=== PATIENT | male | born 1980 | race Caucasian/White ===

== ENCOUNTER → 2017-02-14 | Outpatient (CLI) | payer MEDICARE, MEDICAID ==
[~2017-02-14] MED LIST: ACULAR 3 ML3 M1 OP; ALLOPURINOL100 MG PO; ASPIR-LOW81 MG PO; ATIVAN1 MG PO; BACTRIM 400 MG-1 TAB PO; COLCHICINE0.6 MG PO; GOOD NEIGHBOR150 MG PO; IMITREX100 MG PO; INDOCIN25 MG PO; KEFLEX500 MG PO; MAG-OX 400400 MG PO; METOPROLOL50 MG PO; MINOXIDIL10 MG PO; OMEGA-3 FISH1200 MG PO; OMEPRAZOLE MAGN20 MG PO; OMEPRAZOLE20 M1 PO; OXAYDO5 MG PO; PHOSPHA 250 NEU1 TAB PO; PROCARDIA XL30 MG PO; TACROLIMUS1 MG PO; TOBREX OPHTH S2.5 ML OPH; VICODIN 500 MG-1 TAB PO; VITAMIN C1000 M2 PO; ZYLOPRIM100 MG PO; Zofran4 MG PO
== END | disposition home or self-care (01) ==
LOC: LAB 12:19 → US 13:30
PROVIDERS: Internal Medicine
DX: I65.23 Occlusion and stenosis of bilateral carotid arteries (principal); R59.0 Localized enlarged lymph nodes

== ENCOUNTER 2017-02-19 10:45 | Emergency (ER) | payer MEDICARE, MEDICAID ==
[~2017-02-19] VITALS: Ht 182.8 cm; Wt 136.1 kg
[~2017-02-19 10:45] MED LIST changes: -COLCRYS0.6 M1 PO; -SMZ-TMP 400 MG-1 TAB PO; -VIRT-PHOS 250250 MG PO
[2017-02-19] MEDS ORDERED: SMZ-TMP 400 MG-1 TAB PO (10:57)
[2017-02-19] MEDS ORDERED: COLCRYS0.6 M1 PO (10:58)
[2017-02-19] MEDS ORDERED: VIRT-PHOS 250250 MG PO (10:58)
[2017-02-19 11:39] LABS: BASO # 0.1 10*3/uL (0.0-0.1); BASO % 1.7 % (0.0-1.0); EOS # 0.3 10*3/uL (0.0-0.4); EOS % 4.8 % (1.0-4.0); HEMATOCRIT 42.1 % (42.0-52.0); HEMOGLOBIN 14.4 g/dl (14.0-18.0); LYMPH # 1.1 10*3/uL (1.3-4.4); MEAN CORPUSCULAR HGB 29.8 pg (27.0-31.0); MEAN CORPUSCULAR HGB CONC 34.2 g/dl (33.0-37.0); MEAN PLATELET VOLUME 11.6 fl (9.6-12.3); MONO # 0.4 10*3/uL (0.1-1.0); MONO % 6.2 % (3.0-9.0); NEUT # 4.4 10*3/uL (2.3-7.9); NEUT % 69.7 % (47.0-73.0); PLATELET COUNT AUTOMATED 177 10*3/uL (130-400); RED BLOOD COUNT 4.84 10*6/uL (4.50-5.90); RED CELL DISTRI WIDTH 13.5 % (0-14.5); WHITE BLOOD COUNT 6.3 10*3/uL (4.8-10.8)
[2017-02-19 11:55] LABS: ALKALINE PHOSPHATASE 83 U/L (45-117); BILIRUBIN, TOTAL 0.6 mg/dl (0.2-1.0); BUN 21 mg/dl (7-24); CARBON DIOXIDE 24 mmol/L (21-32); CHLORIDE 109 mmol/L (98-107); EST GLOM FILT AFRICAN AMERICAN > 60 ml/min; GLUCOSE 94 mg/dL (65-99); POTASSIUM 4.6 mmol/L (3.5-5.1); SGOT/AST 46 IU/L (3-35); SGPT/ALT 85 U/L (12-78); SODIUM 142 mmol/L (136-145); TOTAL PROTEIN 7.8 gm/dL (6.4-8.2)
== END 2017-02-19 13:59 | disposition home or self-care (01) ==
LOC: ED 10:45
PROVIDERS: Nurse Practitioner Family
DX: R59.1 Generalized enlarged lymph nodes (principal); R03.0 Elevated blood-pressure reading, without diagnosis of hypertension; G43.909 Migraine, unspecified, not intractable, without status migrainosus; Z79.82 Long term (current) use of aspirin; Z79.899 Other long term (current) drug therapy; Z94.83 Pancreas transplant status; D89.9 Disorder involving the immune mechanism, unspecified; T86.90 Unspecified complication of unspecified transplanted organ and tissue; E83.40 Disorders of magnesium metabolism, unspecified; E55.9 Vitamin D deficiency, unspecified; E34.9 Endocrine disorder, unspecified

== ENCOUNTER → 2017-02-19 | Outpatient (CLI) | payer MEDICARE, MEDICAID ==
[~2017-02-19] MED LIST changes: +COLCRYS0.6 M1 PO; +SMZ-TMP 400 MG-1 TAB PO; +VIRT-PHOS 250250 MG PO
[2017-02-19 10:37] LABS: BASO # 0.1 10*3/uL (0.0-0.1); BASO % 1.5 % (0.0-1.0); EOS # 0.3 10*3/uL (0.0-0.4); EOS % 4.8 % (1.0-4.0); HEMATOCRIT 40.5 % (42.0-52.0); HEMOGLOBIN 13.8 g/dl (14.0-18.0); IG # 0.1 10*3/uL (0.0-0.1); LYMPH % 16.7 % (27.0-41.0); MEAN CELL VOLUME 87.5 fl (80.0-94.0); MEAN CORPUSCULAR HGB 29.8 pg (27.0-31.0); MEAN CORPUSCULAR HGB CONC 34.1 g/dl (33.0-37.0); MEAN PLATELET VOLUME 11.4 fl (9.6-12.3); MONO # 0.3 10*3/uL (0.1-1.0); MONO % 5.6 % (3.0-9.0); NEUT # 4.2 10*3/uL (2.3-7.9); NEUT % 70.5 % (47.0-73.0); PLATELET COUNT AUTOMATED 171 10*3/uL (130-400); RED BLOOD COUNT 4.63 10*6/uL (4.50-5.90); RED CELL DISTRI WIDTH 13.5 % (0-14.5); WHITE BLOOD COUNT 5.9 10*3/uL (4.8-10.8)
[2017-02-19 11:00] LABS: ALBUMIN 3.7 gm/dl (3.1-4.5); ALKALINE PHOSPHATASE 84 U/L (45-117); BILIRUBIN, TOTAL 0.5 mg/dl (0.2-1.0); BUN 22 mg/dl (7-24); CARBON DIOXIDE 25 mmol/L (21-32); CHLORIDE 108 mmol/L (98-107); CHOLESTEROL 182 mg/dL (<200); EST GLOM FILT AFRICAN AMERICAN > 60 ml/min; GLUCOSE 103 mg/dL (65-99); HDL CHOLESTEROL 40 mg/dl (40-60); LDL CHOLESTEROL 112 mg/dL (9-159); MAGNESIUM 1.2 mg/dL (1.5-2.1); PHOSPHOROUS 2.3 mg/dL (2.5-4.9); POTASSIUM 4.4 mmol/L (3.5-5.1); SGOT/AST 38 IU/L (3-35); SGPT/ALT 84 U/L (12-78); SODIUM 142 mmol/L (136-145); TOTAL PROTEIN 7.5 gm/dL (6.4-8.2); TRIGLYCERIDES 150 mg/dl (<150); URIC ACID 8.3 mg/dL (3.5-7.2); VLDL CHOLESTEROL 30 mg/dL (6-40)
[2017-02-19 11:02] LABS: HEMOGLOBIN A1c 5.5 % (4.8-5.6)
[2017-02-21 11:17] LABS: VITAMIN D, 25-HYDROXY 15.9 ng/mL (30-100)
[2017-02-21 11:18] LABS: PTH INTACT 191.4 pg/mL (14.0-72.0)
== END | disposition home or self-care (01) ==
LOC: CT 02-15 14:00 → LAB 09:58 → CT 11:00
PROVIDERS: Internal Medicine Nephrology
DX: D89.9 Disorder involving the immune mechanism, unspecified (principal); E34.9 Endocrine disorder, unspecified; E83.40 Disorders of magnesium metabolism, unspecified; T86.90 Unspecified complication of unspecified transplanted organ and tissue; E55.9 Vitamin D deficiency, unspecified; Z94.83 Pancreas transplant status; Z79.899 Other long term (current) drug therapy

== ENCOUNTER → 2017-03-11 | Outpatient (CLI) | payer MEDICARE, MEDICAID ==
[~2017-03-11] MED LIST changes: +COLCRYS0.6 M1 PO; +SMZ-TMP 400 MG-1 TAB PO; +VIRT-PHOS 250250 MG PO
[2017-03-11 17:06] LABS: BASO # 0.1 10*3/uL (0.0-0.1); BASO % 1.2 % (0.0-1.0); EOS # 0.2 10*3/uL (0.0-0.4); EOS % 3.9 % (1.0-4.0); HEMATOCRIT 41.4 % (42.0-52.0); HEMOGLOBIN 14.1 g/dl (14.0-18.0); LYMPH % 19.6 % (27.0-41.0); MEAN CELL VOLUME 87.5 fl (80.0-94.0); MEAN CORPUSCULAR HGB 29.8 pg (27.0-31.0); MEAN CORPUSCULAR HGB CONC 34.1 g/dl (33.0-37.0); MONO # 0.3 10*3/uL (0.1-1.0); MONO % 5.1 % (3.0-9.0); NEUT # 3.4 10*3/uL (2.3-7.9); NEUT % 69.8 % (47.0-73.0); PLATELET COUNT AUTOMATED 161 10*3/uL (130-400); RED BLOOD COUNT 4.73 10*6/uL (4.50-5.90); RED CELL DISTRI WIDTH 13.2 % (0-14.5); WHITE BLOOD COUNT 4.9 10*3/uL (4.8-10.8)
[2017-03-11 17:23] LABS: FREE T4 1.04 ng/dl (0.76-1.46)
[2017-03-11 17:27] LABS: THYROID STIM HORMONE (HS) 0.971 uIU/ml (0.358-4.75)
[2017-03-12 07:07] LABS: FREE T3 010389 3.1 pg/mL (2.0-4.4)
== END | disposition home or self-care (01) ==
LOC: LAB 03:56 → US 03:56
PROVIDERS: Specialist
DX: J35.8 Other chronic diseases of tonsils and adenoids (principal); E04.1 Nontoxic single thyroid nodule; R59.0 Localized enlarged lymph nodes

== ENCOUNTER → 2017-03-14 | Outpatient (CLI) | payer MEDICARE, MEDICAID ==
[2017-03-14 12:49] LABS: BASO # 0.1 10*3/uL (0.0-0.1); BASO % 1.5 % (0.0-1.0); EOS # 0.2 10*3/uL (0.0-0.4); EOS % 4.3 % (1.0-4.0); HEMATOCRIT 39.1 % (42.0-52.0); HEMOGLOBIN 13.4 g/dl (14.0-18.0); LYMPH % 21.8 % (27.0-41.0); MEAN CELL VOLUME 87.1 fl (80.0-94.0); MEAN CORPUSCULAR HGB 29.8 pg (27.0-31.0); MEAN CORPUSCULAR HGB CONC 34.3 g/dl (33.0-37.0); MEAN PLATELET VOLUME 11.4 fl (9.6-12.3); MONO # 0.3 10*3/uL (0.1-1.0); MONO % 6.5 % (3.0-9.0); NEUT % 65.3 % (47.0-73.0); PLATELET COUNT AUTOMATED 162 10*3/uL (130-400); RED BLOOD COUNT 4.49 10*6/uL (4.50-5.90); RED CELL DISTRI WIDTH 13.1 % (0-14.5); WHITE BLOOD COUNT 4.6 10*3/uL (4.8-10.8)
[2017-03-14 13:43] LABS: PROTHROMBIN TIME 10.5 SECONDS (9.0-12.4)
[2017-03-14 13:58] LABS: FREE T4 1.02 ng/dl (0.76-1.46); THYROID STIM HORMONE (HS) 1.18 uIU/ml (0.358-4.75)
[2017-03-15 07:07] LABS: FREE T3 010389 3.1 pg/mL (2.0-4.4)
== END | disposition home or self-care (01) ==
LOC: LAB 12:21
PROVIDERS: Specialist
DX: E04.1 Nontoxic single thyroid nodule (principal); J35.8 Other chronic diseases of tonsils and adenoids; R59.0 Localized enlarged lymph nodes; Z79.01 Long term (current) use of anticoagulants

== ENCOUNTER → 2017-03-17 | Outpatient (CLI) | payer MEDICARE, MEDICAID | END | disposition home or self-care (01) | LOC: SDC 11:00 → EDSTATUS 11:00 | DX: E04.1 Nontoxic single thyroid nodule (principal); R59.0 Localized enlarged lymph nodes; J35.8 Other chronic diseases of tonsils and adenoids ==

== ENCOUNTER → 2017-03-24 | Outpatient (CLI) | payer MEDICARE, MEDICAID | END | disposition home or self-care (01) | LOC: CT 11:00 | DX: E04.1 Nontoxic single thyroid nodule (principal); R59.0 Localized enlarged lymph nodes ==

== ENCOUNTER → 2017-04-06 | Outpatient (CLI) | payer MEDICARE, MEDICAID ==
[2017-04-06 12:34] LABS: BASO # 0.1 10*3/uL (0.0-0.1); BASO % 1.5 % (0.0-1.0); EOS # 0.3 10*3/uL (0.0-0.4); EOS % 6.1 % (1.0-4.0); HEMATOCRIT 40.2 % (42.0-52.0); HEMOGLOBIN 13.7 g/dl (14.0-18.0); LYMPH # 0.9 10*3/uL (1.3-4.4); LYMPH % 17.4 % (27.0-41.0); MEAN CELL VOLUME 87.8 fl (80.0-94.0); MEAN CORPUSCULAR HGB 29.9 pg (27.0-31.0); MEAN CORPUSCULAR HGB CONC 34.1 g/dl (33.0-37.0); MEAN PLATELET VOLUME 11.7 fl (9.6-12.3); MONO # 0.3 10*3/uL (0.1-1.0); MONO % 6.3 % (3.0-9.0); NEUT # 3.6 10*3/uL (2.3-7.9); NEUT % 68.1 % (47.0-73.0); PLATELET COUNT AUTOMATED 152 10*3/uL (130-400); RED BLOOD COUNT 4.58 10*6/uL (4.50-5.90); RED CELL DISTRI WIDTH 13.3 % (0-14.5); WHITE BLOOD COUNT 5.3 10*3/uL (4.8-10.8)
[2017-04-06 12:51] LABS: ALBUMIN 3.8 gm/dl (3.1-4.5); ALKALINE PHOSPHATASE 83 U/L (45-117); BILIRUBIN, TOTAL 0.5 mg/dl (0.2-1.0); BUN 12 mg/dl (7-24); CARBON DIOXIDE 27 mmol/L (21-32); CHLORIDE 106 mmol/L (98-107); EST GLOM FILT AFRICAN AMERICAN > 60 ml/min; GLUCOSE 131 mg/dL (65-99); POTASSIUM 4.3 mmol/L (3.5-5.1); SGOT/AST 28 IU/L (3-35); SGPT/ALT 68 U/L (12-78); SODIUM 143 mmol/L (136-145); TOTAL PROTEIN 7.6 gm/dL (6.4-8.2)
== END | disposition home or self-care (01) ==
LOC: LAB 11:35
DX: I10 Essential (primary) hypertension (principal); E04.1 Nontoxic single thyroid nodule

== ENCOUNTER → 2017-05-10 | Day surgery (SDC) | payer MEDICARE, MEDICAID ==
[2017-05-09 13:28] VITALS: BP 138/71
[2017-05-09 14:44] LABS: BASO # 0.1 10*3/uL (0.0-0.1); EOS # 0.3 10*3/uL (0.0-0.4); HEMATOCRIT 38.6 % (42.0-52.0); HEMOGLOBIN 13.2 g/dl (14.0-18.0); LYMPH # 0.9 10*3/uL (1.3-4.4); LYMPH % 18.3 % (27.0-41.0); MEAN CELL VOLUME 87.5 fl (80.0-94.0); MEAN CORPUSCULAR HGB 29.9 pg (27.0-31.0); MEAN CORPUSCULAR HGB CONC 34.2 g/dl (33.0-37.0); MEAN PLATELET VOLUME 11.4 fl (9.6-12.3); MONO # 0.3 10*3/uL (0.1-1.0); MONO % 6.9 % (3.0-9.0); NEUT # 3.2 10*3/uL (2.3-7.9); NEUT % 67.4 % (47.0-73.0); PLATELET COUNT AUTOMATED 167 10*3/uL (130-400); RED BLOOD COUNT 4.41 10*6/uL (4.50-5.90); RED CELL DISTRI WIDTH 13.1 % (0-14.5); WHITE BLOOD COUNT 4.8 10*3/uL (4.8-10.8)
[2017-05-09 14:50] LABS: ACT PARTIAL THROMBO TIME 25.6 SECONDS (20.8-31.5)
[2017-05-10] VITALS (7 sets, daily range): BP systolic 137–184; BP diastolic 65–107
[~2017-05-10] VITALS: Ht 185.4 cm; Wt 142.9 kg
[~2017-05-10] MED LIST changes: +MAGNESIUM400 M1 PO; +NIFEDIPINE ER30 M1 PO; +OXYCODONE H5 MG/5 ML PO
--- NOTE | ~2017-05-10 | ZIPTON ---
[place], [place] TONSILLECTOMY NAME: LIVE JAMIL [facility] #: [id number] UNIT #: [id number] ROOM: DOCTOR: JAIME KENT MD BIRTHDATE: [birth year] DATE: 05/10/17 PREOPERATIVE DIAGNOSIS: Chronic tonsillitis. POSTOPERATIVE DIAGNOSIS: Same. OPERATION PERFORMED: Bilateral tonsillectomy. SURGEON: Dr. Kent. ANESTHESIA: General endotracheal. OPERATIVE PROCEDURE: Following induction of general endotracheal anesthesia, the patient was positioned supine on the OR table and draped in the standard fashion for tonsillectomy. The mouth was exposed using McIvor retractor. Bilateral tonsillectomy was performed with electrocautery. Minor bleeding was controlled with cautery. At the end of the case, all instrument and sponge counts were correct. Gastric contents were decompressed. The patient was awakened, extubated and transported to PACU in satisfactory condition. JAIME ALAMO MD CM:OPRECORD:TONSILLECTOMY 05 JAIME KENT MD 05/12/17 1006 FELY METZ.Wilmer
== END | disposition home or self-care (01) ==
LOC: SDC 05-03 10:15 → LAB 03:29 → SDC 09:30 → LAB 10:00 → SDC 13:00 → LAB 13:00
PROVIDERS: Specialist
DX: J35.01 Chronic tonsillitis (principal); I10 Essential (primary) hypertension; K21.9 Gastro-esophageal reflux disease without esophagitis; G43.909 Migraine, unspecified, not intractable, without status migrainosus; M10.9 Gout, unspecified; Z98.890 Other specified postprocedural states; Z82.49 Family history of ischemic heart disease and other diseases of the circulatory system; Z94.0 Kidney transplant status

== ENCOUNTER 2017-05-20 16:49 | Inpatient (IN) | payer MEDICARE, MEDICAID ==
[~2017-05-20] VITALS: Ht 182.8 cm; Wt 135.7 kg
--- NOTE | ~2017-05-20 | PR ---
[place], [place] PROGRESS NOTE NAME: LIVE JAMIL [facility] #: [id number] UNIT #: [id number] ROOM: 518 DOCTOR: JACKIE MONROY MD BIRTHDATE: [birth year] DOS: 05/21/2017 SUBJECTIVE: This is a patient who had been admitted to hospital yesterday with acute gastroenteritis with vomiting and diarrhea. He is feeling much better. He does not have any pain in the abdomen. There is no nausea, no vomiting, no diarrhea and he is able to tolerate his food very well. The patient has history of renal transplant in the past and on admission, he had acute on chronic renal failure and gout. He does not have any chest pain, no difficulty breathing and his troponin level is normal. CBC shows slight hypochromic anemia with hemoglobin 11.4, hematocrit 33.9. Hemoglobin A1c 6.1. Comprehensive metabolic profile showed BUN 13, creatinine 1.89, GFR 41, glucose 151, phosphorus 2 and lipid profile is fairly normal except triglyceride 197. Vitamin B12 and folic acids are normal. Vitamin D level is normal also. OBJECTIVE: VITAL SIGNS: His blood pressure is 144/76, pulse 67, respirations 18, temperature 98.5. CHEST: Clear. HEART: Regular. ABDOMEN: Soft. PLAN: We will continue with the present treatment as the patient is responding to it. JACKIE MONROY MD CM:PNTRANS [id number] JACKIE MONROY MD 05/22/17 0204 interface
--- NOTE | ~2017-05-20 | DS ---
[place], [place] DISCHARGE SUMMARY NAME: LIVE JAMIL [facility] #: [id number] UNIT #: [id number] ROOM: 518 DOCTOR: JACKIE MONROY MD BIRTHDATE: [birth year] DOS: 05/21/2017 The patient discharged from the hospital yesterday, he was seen by embossing toolsetter and according to him patient could be discharged so the patient is being discharged to home today. He is followed up by Dr. Mckeon in the office next week and he will be seen by the embossing toolsetter to which he is seeing in the [facility]. He says he goes there and he was asymptomatic. For details, please refer to my progress report in the morning yesterday and also detailed history and physical examination. Patient will continue taking his home medication. JACKIE MONROY MD CM:CONCHITA [id number] JACKIE MONROY MD 05/22/17 1052 interface
--- NOTE | ~2017-05-20 | CON ---
[place], [place] REPORT OF CONSULTATION [id number] UNIT #: [id number] ROOM: 518 DOCTOR: VICENTE THORPE MD BIRTHDATE: [birth year] DOS: 05/21/2017 REASON FOR CONSULTATION: History of kidney transplant for chronic kidney disease. HISTORY OF PRESENT ILLNESS: The patient is a pleasant 37-year-old male. He has a history of IgA nephropathy. He had been on dialysis in the past it seems. Apparently, this was diagnosed at age 14 according to some of the records. It appears he underwent renal transplant 8 years ago. He maintains on monotherapy with tacrolimus 8 mg in the morning and 7 mg in the evening. He states he was transplanted at [facility] and follows with them once a year. He reports he was supposed to have labs every 3 months, but has not had labs in "a while." It does not appear that he follows with local [facility]. He reported to me he had his tonsils taken out about a week ago or so and has not eaten much, but began to start to eat then developed sudden onset of abdominal discomfort and cramps and came to the Emergency Room. His initial labs showed a creatinine of 1.88, which appears to be near his baseline for my review of the records. This pain was apparently in the umbilical region and then it subsided. He was started on some antibiotics and fluids and reports to me he feels a lot better and hopes to go home. Currently, he denies nausea, vomiting, fevers, chills, night sweats, chest pains. Denies any diarrhea. Apparently, he initially did have some nausea, vomiting and diarrhea together. Again, this has all resolved. ALLERGIES: No known drug allergies. HOME MEDICATIONS: Included minoxidil, metoprolol, aspirin, allopurinol, tacrolimus 8 mg in the morning and 7 mg in the evening, omeprazole, ranitidine, Bactrim 3 days a week, Neutra-Phos twice a day, Mag-Ox, colchicine, nifedipine XL. PAST MEDICAL HISTORY: 1. End-stage renal disease, details as noted above. He is status post renal transplant approximately 8 years ago. 2. History of renal biopsy in the past. 3. Hypertension. 4. History of gout. 5. GERD. 6. Recent tonsillectomy. FAMILY HISTORY: No reported history of chronic kidney disease, otherwise noncontributory. SOCIAL HISTORY: No tobacco, alcohol or illicit drugs. REVIEW OF SYSTEMS: As per HPI, otherwise a 10-point review of systems was reviewed and was negative. PHYSICAL EXAMINATION: VITAL SIGNS: Temperature 97.7, pulse 70, respiratory rate 18, blood pressure 149/89. [place], [place] REPORT OF CONSULTATION NAME: LIVE JAMIL UNIT #: [id number] ROOM: 518 DOCTOR: VICENTE THORPE MD BIRTHDATE: [birth year] GENERAL: He is alert, awake, oriented x3, in no acute distress. HEENT: Shows no JVD. Sclerae are anicteric. Mucous membranes are moist. Pharynx is clear. NECK: Supple. Trachea midline. There is no neck lymphadenopathy. There is no thyromegaly. LUNGS: Clear to auscultation. No crackles, wheezing or rales. There is no tactile fremitus. He is not using accessory muscles of respiration. HEART: Normal S1, S2. No rub, thrill or gallop. ABDOMEN: Soft, nontender. I do not appreciate organomegaly, rigidity, rebound or guarding. There is no CVA tenderness. EXTREMITIES: Showed no edema. There is clubbing or cyanosis. Distal pulses are 2+. SKIN: Showed no overt rash. There are no petechiae or purpura. Skin temperature is warm. NEUROLOGIC: He is awake and alert. He is following commands. Cranial nerves are intact. LABORATORY DATA: Reviewed. BUN 13, creatinine 1.9, glucose 151, sodium 140, potassium 4.1, CO2 of 27, calcium 9.0, phosphorus 2.0, magnesium 1.6. Hemoglobin 11.4, white count of 4.8, platelets of 161. IMPRESSION: 1. History of renal transplant approximately 8 years ago with baseline creatinine that appears to be in the middle to upper 1's range with stage III chronic kidney disease. 2. Abdominal discomfort with apparently nausea and vomiting and diarrhea. This seems to have resolved. 3. Mild anemia. 4. Hypertension. 5. Recent tonsillectomy with details unclear. 6. History of gout. PLAN: 1. The patient appears to be stable from renal standpoint. His creatinine appears to be near his baseline. He is improving clinically with IV fluids. 2. His immunosuppression home medications should continue as prescribed. 3. Dose medication for current creatinine clearance. 4. From a renal standpoint, he appears stable for discharge. I did give him our contact information and he is welcome to follow up with our office here in [place] on discharge. I urged him to get lab work more frequently. Thank you for this consultation. We will follow with you. [place], [place] REPORT OF CONSULTATION NAME: LIVE JAMIL UNIT #: [id number] ROOM: 518 DOCTOR: ILA SMILEY,VICENTE Montiel BIRTHDATE: [birth year] VICENTE THORPE MD CM:CONSTR:REPORT OF CONSULTATION 1619 05/22/17 0556 interface
[~2017-05-20 16:49] MED LIST changes: -NIFEDIPINE ER30 M1 PO
[2017-05-20 16:57] VITALS: BP 141/80
[2017-05-20 17:18] LABS: BASO # 0.1 10*3/uL (0.0-0.1); BASO % 1.7 % (0.0-1.0); EOS # 0.3 10*3/uL (0.0-0.4); EOS % 4.6 % (1.0-4.0); HEMATOCRIT 38.5 % (42.0-52.0); LYMPH # 0.7 10*3/uL (1.3-4.4); LYMPH % 13.2 % (27.0-41.0); MEAN CELL VOLUME 86.3 fl (80.0-94.0); MEAN CORPUSCULAR HGB 29.1 pg (27.0-31.0); MEAN CORPUSCULAR HGB CONC 33.8 g/dl (33.0-37.0); MEAN PLATELET VOLUME 11.7 fl (9.6-12.3); MONO # 0.3 10*3/uL (0.1-1.0); MONO % 5.2 % (3.0-9.0); NEUT % 74.7 % (47.0-73.0); PLATELET COUNT AUTOMATED 200 10*3/uL (130-400); RED BLOOD COUNT 4.46 10*6/uL (4.50-5.90); RED CELL DISTRI WIDTH 12.9 % (0-14.5); WHITE BLOOD COUNT 5.4 10*3/uL (4.8-10.8)
[2017-05-20 17:35] LABS: ALBUMIN 3.6 gm/dl (3.1-4.5); BILIRUBIN, TOTAL 0.7 mg/dl (0.2-1.0); POTASSIUM 5.9 mmol/L (3.5-5.1); TOTAL PROTEIN 7.9 gm/dL (6.4-8.2)
[2017-05-20 17:54] VITALS: BP 137/80
[2017-05-20] MEDS ORDERED: NIFEDIPINE ER30 M1 PO (18:07)
[2017-05-20 18:43] LABS: ALBUMIN 3.7 gm/dl (3.1-4.5); BILIRUBIN, TOTAL 0.7 mg/dl (0.2-1.0); TOTAL PROTEIN 7.5 gm/dL (6.4-8.2)
[2017-05-20 18:44] LABS: POTASSIUM 4.2 mmol/L (3.5-5.1)
[2017-05-20 20:00] VITALS: BP 139/72
[2017-05-21] VITALS: BP 141/72
[2017-05-21 06:16] LABS: BASO # 0.1 10*3/uL (0.0-0.1); BASO % 1.1 % (0.0-1.0); EOS # 0.2 10*3/uL (0.0-0.4); EOS % 4.6 % (1.0-4.0); HEMATOCRIT 33.9 % (42.0-52.0); HEMOGLOBIN 11.4 g/dl (14.0-18.0); LYMPH # 1.1 10*3/uL (1.3-4.4); LYMPH % 23.2 % (27.0-41.0); MEAN CELL VOLUME 86.5 fl (80.0-94.0); MEAN CORPUSCULAR HGB 29.1 pg (27.0-31.0); MEAN CORPUSCULAR HGB CONC 33.6 g/dl (33.0-37.0); MEAN PLATELET VOLUME 11.3 fl (9.6-12.3); MONO # 0.3 10*3/uL (0.1-1.0); MONO % 7.2 % (3.0-9.0); NEUT % 63.7 % (47.0-73.0); PLATELET COUNT AUTOMATED 161 10*3/uL (130-400); RED BLOOD COUNT 3.92 10*6/uL (4.50-5.90); RED CELL DISTRI WIDTH 12.7 % (0-14.5); WHITE BLOOD COUNT 4.8 10*3/uL (4.8-10.8)
[2017-05-21 06:45] LABS: ALBUMIN 3.1 gm/dl (3.1-4.5); MAGNESIUM 1.6 mg/dL (1.5-2.1); POTASSIUM 4.1 mmol/L (3.5-5.1)
[2017-05-21 06:53] LABS: HEMOGLOBIN A1c 6.1 % (4.8-5.6)
[2017-05-21 06:56] LABS: BILIRUBIN, TOTAL 0.5 mg/dl (0.2-1.0); THYROID STIM HORMONE (HS) 0.129 uIU/ml (0.358-4.75); TOTAL PROTEIN 6.7 gm/dL (6.4-8.2)
[2017-05-21 08:00] VITALS: BP 144/76
[2017-05-21 09:27] LABS: FOLIC ACID 12.45 ng/mL (>5.38)
[2017-05-21 12:00] VITALS: BP 149/89
[2017-05-21 16:00] VITALS: BP 135/78
== END 2017-05-21 17:43 | disposition home or self-care (01) | DRG 683 ==
LOC: ED 16:49 → EDHOLD 17:48 → 5E 18:23
PROVIDERS: Internal Medicine; Nurse Practitioner Family
DX: N17.9 Acute kidney failure, unspecified (principal); Z94.0 Kidney transplant status; I12.9 Hypertensive chronic kidney disease with stage 1 through stage 4 chronic kidney disease, or unspecified chronic kidney disease; K52.9 Noninfective gastroenteritis and colitis, unspecified; E83.42 Hypomagnesemia; E87.5 Hyperkalemia; N18.3 Chronic kidney disease, stage 3 (moderate); K21.9 Gastro-esophageal reflux disease without esophagitis; G43.909 Migraine, unspecified, not intractable, without status migrainosus; M1A.9XX0 Chronic gout, unspecified, without tophus (tophi); R74.0 Nonspecific elevation of levels of transaminase and lactic acid dehydrogenase [LDH]; D50.9 Iron deficiency anemia, unspecified; Z82.49 Family history of ischemic heart disease and other diseases of the circulatory system; Z82.3 Family history of stroke; Z79.82 Long term (current) use of aspirin; Z79.899 Other long term (current) drug therapy

== ENCOUNTER → 2017-06-28 | Outpatient (CLI) | payer MEDICARE ==
[~2017-06-28] MED LIST changes: +NIFEDIPINE ER30 M1 PO
[2017-06-28 07:31] LABS: BASO # 0.1 10*3/uL (0.0-0.1); BASO % 1.7 % (0.0-1.0); EOS # 0.4 10*3/uL (0.0-0.4); EOS % 7.1 % (1.0-4.0); HEMATOCRIT 38.9 % (42.0-52.0); HEMOGLOBIN 13.2 g/dl (14.0-18.0); LYMPH # 1.1 10*3/uL (1.3-4.4); LYMPH % 20.4 % (27.0-41.0); MEAN CELL VOLUME 86.6 fl (80.0-94.0); MEAN CORPUSCULAR HGB 29.4 pg (27.0-31.0); MEAN CORPUSCULAR HGB CONC 33.9 g/dl (33.0-37.0); MEAN PLATELET VOLUME 11.2 fl (9.6-12.3); MONO # 0.4 10*3/uL (0.1-1.0); MONO % 6.7 % (3.0-9.0); NEUT # 3.4 10*3/uL (2.3-7.9); NEUT % 63.7 % (47.0-73.0); PLATELET COUNT AUTOMATED 166 10*3/uL (130-400); RED BLOOD COUNT 4.49 10*6/uL (4.50-5.90); RED CELL DISTRI WIDTH 13.2 % (0-14.5); WHITE BLOOD COUNT 5.4 10*3/uL (4.8-10.8)
[2017-06-28 08:05] LABS: BUN 19 mg/dl (7-24); CHLORIDE 105 mmol/L (98-107); CREATININE 1.43 mg/dL (0.70-1.30); MAGNESIUM 1.4 mg/dL (1.5-2.1); PHOSPHOROUS 2.3 mg/dL (2.5-4.9); POTASSIUM 4.3 mmol/L (3.5-5.1); SODIUM 141 mmol/L (136-145); URIC ACID 8.3 mg/dL (3.5-7.2)
== END | disposition home or self-care (01) ==
LOC: LAB 07:12
PROVIDERS: Internal Medicine Nephrology
DX: I12.9 Hypertensive chronic kidney disease with stage 1 through stage 4 chronic kidney disease, or unspecified chronic kidney disease (principal); N18.9 Chronic kidney disease, unspecified; K21.9 Gastro-esophageal reflux disease without esophagitis; Z94.0 Kidney transplant status

== ENCOUNTER → 2017-09-01 | Outpatient (CLI) | payer MEDICARE, MEDICAID ==
--- NOTE | 2017-09-01 10:33 | NUR ---
CLIENT TO TREATMENT AREA FOR PICC REMOVAL. PICC WAS REMOVED INTACT AND WITHOUT DIFFICULTY TO 37CM. MANUAL PRESSURE WAS HELD ON PICC FOR SEVERAL MINUTES AND PRESSURE DRESSING WAS APPLIED. CLIENT REMAINED IN TREATMENT AREA FOR SEVERAL MINUTES. NO BLEEDING WAS SEEN. CLIENT THEN AMBULATED FROM TREATMENT AREA IN STABLE CONDITION
== END | disposition home or self-care (01) ==
LOC: PICC 10:00
DX: Z51.11 Encounter for antineoplastic chemotherapy (principal); Z45.2 Encounter for adjustment and management of vascular access device; C83.30 Diffuse large B-cell lymphoma, unspecified site; D47.Z1 Post-transplant lymphoproliferative disorder (PTLD); D70.1 Agranulocytosis secondary to cancer chemotherapy; T86.99 Other complications of unspecified transplanted organ and tissue; R11.2 Nausea with vomiting, unspecified; T88.7XXA Unspecified adverse effect of drug or medicament, initial encounter

== ENCOUNTER 2017-09-11 16:40 | Inpatient (IN) | payer MEDICARE, MEDICAID ==
[~2017-09-11] VITALS: Ht 182.9 cm; Wt 134.9 kg
--- NOTE | ~2017-09-11 | EKG ---
[place], [place] ELECTROCARDIOGRAM REPORT NAME: LIVE JAMIL UNIT #: [id number] ROOM: [facility] DOCTOR: MAGED ALVARES MD BIRTHDATE: [birth year] DOS: 09/11/2017 TIME: 17:29:40. RATE AND RHYTHM: Normal sinus rhythm at 89 beats per minute. FL interval 149 milliseconds, QRS duration 86 milliseconds, corrected QT interval is 469 milliseconds, QRS axis is 13. IMPRESSION: 1. Normal sinus rhythm. 2. Probable left atrial enlargement. 3. Abnormal R-wave progression, late transition. 4. Borderline EKG. 5. The patient does have underlying obesity, which could be causing poor R-wave progression and to transition. A 2D echo will be ordered on the patient. MAGED ALVARES MD CM:EKGRPT:ELECTROCARDIOGRAM REPORT 1007 1052 MAGED ALVARES MD
--- NOTE | ~2017-09-11 | CON ---
[place], [place] REPORT OF CONSULTATION [id number] UN[facility] #: [id number] ROOM: [facility] DOCTOR: HEATHER ZAMORANO MD BIRTHDATE: [birth year] DOS: 09/13/2017 HISTORY OF PRESENT ILLNESS: The patient is a pleasant 37-year-old gentleman with a history of renal transplant about 8 years ago. Because of IgA nephropathy that led to transplant, status post transplant lymphoproliferative disorder. Has been on tacrolimus since then. He was noted to have high blood sugar of about 600 when he checked at home and subsequently admitted. Routine CBC examination was found to be pancytopenic and consulted for further evaluation and management. PAST MEDICAL HISTORY: Significant for IgA nephropathy status post renal transplant followed by a lymphoproliferative disorder, GERD, gout, history of migraines, mesenteric adenitis, and transaminitis. PAST SURGICAL HISTORY: Kidney transplant and tonsillectomy. SOCIAL HISTORY: No smoking, drinking, or drug abuse. FAMILY HISTORY: Father and mother, hypertension. ALLERGIES: No known allergies. MEDICATIONS: Allopurinol, aspirin, colchicine, mag oxide, metoprolol, minoxidil, nifedipine, omeprazole, ranitidine, Bactrim, and tacrolimus. REVIEW OF SYSTEMS CONSTITUTIONAL: No chills. No fatigue. No fever. No loss of appetite. No night sweats. No weakness. No weight loss. HEENT: No trouble swallowing. No loss of smell. No loss of hearing. No double vision. No pain. No discharge. ENT AND RESPIRATORY: No wheeze. No sore throat. No change in voice. No hearing loss. No nose bleed. No cough. No trouble breathing through nose. No shortness of breath. No coughing up blood. No epistaxis. CARDIOVASCULAR: No chest pain. No dizziness. No irregular heartbeat. No leg edema. No pain in legs while walking. No palpitations. No shortness of breath. DERMATOLOGIC: No acne. No hives. No laceration. No mole. No rash. ENDOCRINE: No cold intolerance. No diabetes. No fatigue. No hot flashes. No polydipsia. No polyuria. No urinating frequently. No weight loss. HEMATOLOGIC AND LYMPH: No fatigue. No easy bruising. GASTROENTEROLOGIC: No change in bowel habits. No indigestion. No frequent bloating. No vomiting blood. No abdominal cramping. No nausea. No heartburn. No vomiting. No abdominal pain. No dysphagia. No diarrhea. No constipation. No blood in stool. MALE REPRODUCTIVE: No testicular pain. No difficulty with erection. No diminished sexual drive. No penile discharge. MUSCULOSKELETAL: No back pain. No muscle pain or weakness. No neck pain. No tingling/numbness. No swelling/bruising. No osteoporosis treatment. OPHTHALMOLOGIC: No double vision. No diminished vision. No loss of vision. UROLOGIC: No dysuria. No frequent nighttime urination. No pain with [place], [place] REPORT OF CONSULTATION NAME: LIVE JAMIL UNIT #: [id number] ROOM: [facility] DOCTOR: HEATHER ZAMORANO MD BIRTHDATE: [birth year] urination. No difficulty urinating. No blood in urine. No frequent urination. No urinary incontinence. NEUROLOGIC: No loss of sensation in specific body area. No vertigo. No burning pain in feet. No trouble with balance. No trouble with coordination. No loss of consciousness. No loss of feeling/power. No confusion. No headache. No tingling/numbness. PSYCHOLOGIC: No tinnitus. No headaches. No shortness of breath. No weight decrease. No nausea. No vomiting. No abdominal discomfort. No constipation. No diarrhea. No depression. No anxiety. PHYSICAL EXAMINATION: GENERAL: He is a pleasant gentleman in no apparent distress. VITAL SIGNS: Stable, afebrile. HEENT: Oral mucosa appears intact. The external ears are normal in appearance. Nares are patent without lesions, exudates, erythema, or inflammation. Tongue is symmetrical. Uvula is midline. NECK AND THYROID: Neck supple without palpable masses. Trachea is midline. No thyromegaly. No carotid bruit or JVD. BREASTS: Normal. Nipples unremarkable. No drainage. No lumps felt on either side. HEART: Normal S1, S2, without significant murmur, rub, or gallop. LUNGS: Clear to auscultation and percussion with good air entry bilaterally. The patient is breathing easily without the use of accessory muscles. Diaphragmatic excursions are intact. ABDOMEN: No costovertebral angle tenderness. Soft. No organomegaly or masses. Nontender. No hernias present. Liver and spleen are not palpable. LYMPHATIC: No adenopathy noted in the cervical, supraclavicular, axillary, or inguinal regions. NEUROLOGIC: Nonfocal. Oriented to person, place, and time. MENTAL STATUS: Appropriate for mood and affect. PERIPHERAL PULSES: No varicosities. Femoral and pedal pulses are palpable. EXTREMITIES: Without cyanosis, clubbing, or edema. No gross anomalies. LABORATORY DATA: White count of 2.0, hemoglobin 9.7, hematocrit 28.2, platelet count 112,000. Peripheral smear shows metamyelocytes and myelocytes. BUN of 16, EGFR more than 60. Sodium 137, potassium 3.7, chloride 103, bicarbonate 26, magnesium 1.3, SGOT 53, SGPT 98. ASSESSMENT: 1. Pancytopenia secondary to possibly tacrolimus. 2. Diabetes mellitus, new onset. 3. Hypertension. PLAN: We will just keep a close watch at this time. His counts are low. I advised if it starts dropping, then we have to hold the medication or put on growth factors if he continues to be neutropenic. The patient was advised that he is going home today and was advised any bleeding, bruising, petechia any fever or chills to call his family doctor right away, otherwise close followup. Follow up blood counts as outpatient. Ample time was given to the patient to ask me questions. We will follow. [place], [place] REPORT OF CONSULTATION NAME: LIVE JAMIL UNIT #: [id number] ROOM: [facility] DOCTOR: HETAHER ZAMORANO MD BIRTHDATE: [birth year] Thanks for consulting and letting me participate in the care of this interesting patient. HEATHER ZAMORANO MD CM:CONSTR:REPORT OF CONSULTATION 1417 09/14/17 0213 interface
[2017-09-11 16:47] VITALS: BP 169/98
[2017-09-11 17:14] LABS: BILIRUBIN NEGATIVE (NEGATIVE); BLOOD TRACE-LYSED (NEGATIVE); CLARITY SL CLOUDY (CLEAR); COLOR YELLOW (YELLOW); GLUCOSE 3+ (NEGATIVE); KETONE 1+ (NEGATIVE); LEUKO ESTERASE NEGATIVE (NEGATIVE); NITRITE NEGATIVE (NEGATIVE); SPECIFIC GRAVITY <= 1.005 (1.005-1.030); UROBILINOGEN 0.2 E.U./dl (0.2-1.0)
[2017-09-11 17:18] LABS: BACTERIA 1+; EPITHELIAL CELLS 0-2; RBC 0-2 rbc/hpf (0-2)
[2017-09-11 17:30] LABS: HEMATOCRIT 32.4 % (42.0-52.0); HEMOGLOBIN 11.4 g/dl (14.0-18.0); MEAN CELL VOLUME 82.2 fl (80.0-94.0); MEAN CORPUSCULAR HGB 28.9 pg (27.0-31.0); MEAN CORPUSCULAR HGB CONC 35.2 g/dl (33.0-37.0); MEAN PLATELET VOLUME 12.2 fl (9.6-12.3); NUCLEATED RED BLOOD CELL 1.7 % (0.0-0.0); PLATELET COUNT AUTOMATED 125 10*3/uL (130-400); RED BLOOD COUNT 3.94 10*6/uL (4.50-5.90); RED CELL DISTRI WIDTH 14.1 % (0-14.5); WHITE BLOOD COUNT 2.4 10*3/uL (4.8-10.8)
[2017-09-11 17:39] LABS: ACT PARTIAL THROMBO TIME 23.9 SECONDS (20.8-31.5)
[2017-09-11 17:44] LABS: ALBUMIN 3.5 gm/dl (3.1-4.5); ALKALINE PHOSPHATASE 128 U/L (45-117); BUN 21 mg/dl (7-24); CHLORIDE 91 mmol/L (98-107); CREATININE 1.51 mg/dL (0.70-1.30); LIPASE 61 U/L (73-393); POTASSIUM 4.3 mmol/L (3.5-5.1); SGOT/AST 36 IU/L (3-35); SGPT/ALT 84 U/L (12-78); SODIUM 128 mmol/L (136-145)
[2017-09-11 17:47] VITALS: BP 159/85
[2017-09-11 17:47] LABS: TROPONIN I < 0.015 ng/ml (<0.045)
[2017-09-11 17:55] LABS: BASOPHILS 3 % (0-1); TOTAL CELLS COUNTED 100 #CELLS
[2017-09-11 17:56] LABS: POLYCHROMASIA SLIGHT; TOXIC GRANULATION SLIGHT
[2017-09-11 17:58] LABS: PLATELET SUFFICIENCY LOW (NORMAL)
[2017-09-11 19:20] VITALS: BP 133/92
--- NOTE | 2017-09-11 19:20 | NUR ---
A 37, admitted to ICCU, under the services of MAGED Alejandro MD with a diagnosis of HYPERGLYCEMIA. Chief complaint is INCREASES THIRST, URINATION, ELEVATED BLOOD SURGAR.. Patient arrived via ambulatory from ER. Monitor applied. Initial assessment completed. Vital signs taken and recorded. MAGED ALEJANDRO MD notified of admission to the unit. Orders received. See assessment for past medical history, medications and allergies. Patient and/or family oriented to unit. [facility] visitation policy reviewed. Clothing/patient valuable form completed. EVY NICOLE
--- NOTE | 2017-09-11 21:21 | NUR ---
PATIENT STATED HE IS FEELING BETTER. KARMEN IN CPAP FROM HOME.
[2017-09-12] VITALS: BP 150/87
[2017-09-12 04:00] VITALS: BP 164/88
[2017-09-12 04:55] LABS: HEMATOCRIT 28.5 % (42.0-52.0); HEMOGLOBIN 9.9 g/dl (14.0-18.0); MEAN CELL VOLUME 82.6 fl (80.0-94.0); MEAN CORPUSCULAR HGB 28.7 pg (27.0-31.0); MEAN CORPUSCULAR HGB CONC 34.7 g/dl (33.0-37.0); MEAN PLATELET VOLUME 11.4 fl (9.6-12.3); NUCLEATED RED BLOOD CELL 1.2 % (0.0-0.0); PLATELET COUNT AUTOMATED 128 10*3/uL (130-400); RED BLOOD COUNT 3.45 10*6/uL (4.50-5.90); RED CELL DISTRI WIDTH 14.4 % (0-14.5); WHITE BLOOD COUNT 2.5 10*3/uL (4.8-10.8)
[2017-09-12 05:10] LABS: BUN 18 mg/dl (7-24); CHLORIDE 101 mmol/L (98-107); CREATININE 1.31 mg/dL (0.70-1.30); POTASSIUM 3.5 mmol/L (3.5-5.1); SODIUM 137 mmol/L (136-145)
[2017-09-12 05:33] LABS: BASOPHILS 4 % (0-1); TOTAL CELLS COUNTED 100 #CELLS
[2017-09-12 05:34] LABS: PLATELET SUFFICIENCY LOW (NORMAL); POLYCHROMASIA SLIGHT
[2017-09-12 08:00] VITALS: BP 155/83
--- NOTE | 2017-09-12 08:28 | NUR ---
Awake and alert. No c/o this AM. home c-pap to off.
[2017-09-12 12:00] VITALS: BP 150/94
--- NOTE | 2017-09-12 15:38 | NUR ---
MRI ordered. pt. stated no way he is having an MRI unless he is totally sedated. Dr. Kennedy bautista.
[2017-09-12 16:00] VITALS: BP 166/93
--- NOTE | 2017-09-12 17:18 | NUR ---
dR. Arvizu IN AND SPOKE W/ PT. PRE MEDICATION ORDERED. given and currently in MRI. Family in to visit.
--- NOTE | 2017-09-12 17:40 | NUR ---
All meds scanned for this time frame were wasted. Pt. stated he took his own meds . with the exception of IVF.
[2017-09-12 20:00] VITALS: BP 147/77
[2017-09-13] VITALS: BP 147/94
[2017-09-13 04:00] VITALS: BP 154/91
--- NOTE | 2017-09-13 05:30 | NUR ---
PATIENT AWAKE C/O OF BLURRED VISION STILL PRESENT. DENIES ANY OTHER COMPLAINTS AT THIS TIME.
[2017-09-13 05:41] LABS: ACT PARTIAL THROMBO TIME 24.9 SECONDS (20.8-31.5)
[2017-09-13 05:50] LABS: HEMATOCRIT 28.2 % (42.0-52.0); HEMOGLOBIN 9.7 g/dl (14.0-18.0); MEAN CORPUSCULAR HGB 29.6 pg (27.0-31.0); MEAN CORPUSCULAR HGB CONC 34.4 g/dl (33.0-37.0); MEAN PLATELET VOLUME 11.4 fl (9.6-12.3); PLATELET COUNT AUTOMATED 112 10*3/uL (130-400); RED BLOOD COUNT 3.28 10*6/uL (4.50-5.90); RED CELL DISTRI WIDTH 14.6 % (0-14.5)
[2017-09-13 06:01] LABS: ALBUMIN 2.8 gm/dl (3.1-4.5); ALKALINE PHOSPHATASE 97 U/L (45-117); BUN 16 mg/dl (7-24); CHLORIDE 103 mmol/L (98-107); CHOLESTEROL 125 mg/dL (<200); CREATININE 1.28 mg/dL (0.70-1.30); FREE T4 1.28 ng/dl (0.76-1.46); HDL CHOLESTEROL 24 mg/dl (40-60); LDL CHOLESTEROL 23 mg/dL (9-159); PHOSPHOROUS 2.2 mg/dL (2.5-4.9); POTASSIUM 3.7 mmol/L (3.5-5.1); SGOT/AST 53 IU/L (3-35); SGPT/ALT 98 U/L (12-78); SODIUM 137 mmol/L (136-145); TOTAL PROTEIN 5.7 gm/dL (6.4-8.2); TRIGLYCERIDES 391 mg/dl (<150); VLDL CHOLESTEROL 78 mg/dL (6-40)
[2017-09-13 06:06] LABS: THYROID STIM HORMONE (HS) 0.428 uIU/ml (0.358-4.75)
[2017-09-13 06:36] LABS: BASOPHILS 1 % (0-1); PLATELET SUFFICIENCY LOW (NORMAL); POLYCHROMASIA SLIGHT; TOTAL CELLS COUNTED 100 #CELLS; TOXIC GRANULATION SLIGHT
[2017-09-13 07:13] LABS: VITAMIN D, 25-HYDROXY 8.5 ng/mL (30-100)
[2017-09-13 08:00] VITALS: BP 168/92
--- NOTE | 2017-09-13 10:00 | NUR ---
Gas Pump Attendant in to talk to patient. Patient states lives at HOME with HIS MOTHER. There are 20 steps in the home. Physician: DR ALVARES Pharmacy: [facility] Home health services: NONE Patient's level of ADLs: INDEPENDENT Patient has working utilities: YES DME: CPAP Follow-up physician's appointment after d/c: PREFERS TO MAKE HIS OWN APPT Does patient want to access PORTAL?: Discharge plan HOME. ALEKSANDRA ARGUETA
--- NOTE | 2017-09-13 11:17 | NUR ---
NOTIFIED OF CONSULT. LABS REVIEWED. NEW ORDERS FOR LABS TO BE DRAWN.
[2017-09-13 11:37] LABS: RETICULOCYTE % 5.5 % (0.50-2.50)
[2017-09-13 11:58] LABS: IRON 56 ug/dL (65-175); TOTAL IRON BINDING CAPACITY 168 ug/dl (250-450)
[2017-09-13 12:00] VITALS: BP 141/83
[2017-09-13] MEDS ORDERED: JANUVIA50 MG PO (13:45)
[2017-09-13] MEDS ORDERED: LANTUS SOL100 UNIT/1 SC (13:45)
--- NOTE | 2017-09-13 13:53 | NUR ---
Nutritional Support Services Note: Discussing with pt 1800cal diabetic diet. Dx of new onset DM. Has been having frequent thirst and urination prior to coming to hospital. He states he does his own meals, and normally eats pretty healthy. Ht.6' Wt.297# BMI 40.2. Obesity III Discussed proper portion sizes and need for weight loss and blood sugar control. All questions were answered. Encouraged follow up if needed. Diane Sosa
[2017-09-13] MEDS ORDERED: VITAMIN D-32000 UNI1 PO (14:20)
--- NOTE | 2017-09-13 14:45 | NUR ---
Discharge instructions reviewed with patient/family. Patient receptive and verbalizes understanding. Follow-up care arranged. Written instructions given to patient/family. DEBORA ALCAZAR
== END 2017-09-13 14:45 | disposition home or self-care (01) | DRG 637 ==
LOC: ED 16:40 → EDHOLD 18:42 → ICCU 18:42
PROVIDERS: Emergency Medicine; Internal Medicine; Internal Medicine Hematology & Oncology; ADMIT Internal Medicine
PROC: 5A09357 Assistance with Respiratory Ventilation, Less than 24 Consecutive Hours, Continuous Positive Airway Pressure (ICD-10-PCS; principal; 2017-09-12)
DX: E11.10 Type 2 diabetes mellitus with ketoacidosis without coma (principal); N17.0 Acute kidney failure with tubular necrosis; D61.818 Other pancytopenia; Z94.0 Kidney transplant status; E11.65 Type 2 diabetes mellitus with hyperglycemia; K21.9 Gastro-esophageal reflux disease without esophagitis; M10.9 Gout, unspecified; R20.8 Other disturbances of skin sensation; T45.1X5A Adverse effect of antineoplastic and immunosuppressive drugs, initial encounter; I11.9 Hypertensive heart disease without heart failure; R74.0 Nonspecific elevation of levels of transaminase and lactic acid dehydrogenase [LDH]; G43.909 Migraine, unspecified, not intractable, without status migrainosus; M19.90 Unspecified osteoarthritis, unspecified site; Y92.89 Other specified places as the place of occurrence of the external cause; Z82.49 Family history of ischemic heart disease and other diseases of the circulatory system; Z79.82 Long term (current) use of aspirin; Z79.899 Other long term (current) drug therapy

== ENCOUNTER 2017-09-15 00:44 | Emergency (ER) | payer MEDICARE, MEDICAID ==
[~2017-09-15] VITALS: Ht 182.8 cm; Wt 135.2 kg
[~2017-09-15 00:44] MED LIST changes: +JANUVIA50 MG PO; +LANTUS SOL100 UNIT/1 SC; +VITAMIN D-32000 UNI1 PO
[2017-09-15 01:48] LABS: HEMOGLOBIN 10.3 g/dl (14.0-18.0); MEAN CELL VOLUME 85.7 fl (80.0-94.0); MEAN CORPUSCULAR HGB 29.4 pg (27.0-31.0); MEAN CORPUSCULAR HGB CONC 34.3 g/dl (33.0-37.0); MEAN PLATELET VOLUME 10.9 fl (9.6-12.3); PLATELET COUNT AUTOMATED 127 10*3/uL (130-400); RED CELL DISTRI WIDTH 14.6 % (0-14.5)
[2017-09-15 02:02] LABS: ALBUMIN 3.2 gm/dl (3.1-4.5); ALKALINE PHOSPHATASE 97 U/L (45-117); BUN 18 mg/dl (7-24); CHLORIDE 102 mmol/L (98-107); CREATININE 1.44 mg/dL (0.70-1.30); POTASSIUM 3.8 mmol/L (3.5-5.1); SGOT/AST 34 IU/L (3-35); SGPT/ALT 93 U/L (12-78); SODIUM 138 mmol/L (136-145); TOTAL PROTEIN 6.3 gm/dL (6.4-8.2)
[2017-09-15 02:06] LABS: WHITE BLOOD COUNT 1.9 10*3/uL (4.8-10.8)
[2017-09-15 02:09] LABS: TOTAL CELLS COUNTED 100 #CELLS
[2017-09-15 02:10] LABS: PLATELET SUFFICIENCY LOW (NORMAL); POLYCHROMASIA SLIGHT
== END 2017-09-15 03:34 | disposition home or self-care (01) ==
LOC: ED 00:44
PROVIDERS: Emergency Medicine
DX: E11.10 Type 2 diabetes mellitus with ketoacidosis without coma (principal); D72.819 Decreased white blood cell count, unspecified; E11.21 Type 2 diabetes mellitus with diabetic nephropathy; I10 Essential (primary) hypertension; K21.9 Gastro-esophageal reflux disease without esophagitis; G43.909 Migraine, unspecified, not intractable, without status migrainosus; M10.9 Gout, unspecified; Z79.82 Long term (current) use of aspirin; Z79.899 Other long term (current) drug therapy

== ENCOUNTER 2017-09-28 22:18 | Inpatient (IN) | payer MEDICARE, MEDICAID ==
[~2017-09-28] VITALS: Ht 182.8 cm; Wt 133.5 kg
--- NOTE | ~2017-09-28 | CON ---
[place], [place] REPORT OF CONSULTATION NAME: LIVE JAMIL UNIT #: [id number] ROOM: [facility] DOCTOR: HEATHER ZAMORANO MD BIRTHDATE: [birth year] DOS: 09/29/2017 HISTORY OF PRESENT ILLNESS: The patient is a pleasant 37-year-old gentleman with a history of lymphoma for which he developed after being on anti-rejection medication for a kidney transplant. He was noted to have a fever of 100.4 and came to the Emergency Room and was admitted on routine CBC exam, neutropenia with neutropenic fever and consulted for further evaluation and management. He gets his chemo every 21 days and then cycle #5 has not had a PET scan since the start of the treatment. PAST MEDICAL HISTORY: IgA nephropathy for proliferative lymphoma, history of hypertension, GERD, gout, history of migraines, morbid obesity, pancytopenia, diabetes mellitus type 2. PAST SURGICAL HISTORY: Kidney transplant, tonsillectomy. SOCIAL HISTORY: No smoking, drinking, or drug abuse. FAMILY HISTORY: Her father and mother had hypertension. ALLERGIES: No allergies. MEDICATIONS: Allopurinol, aspirin, cholecalciferol, colchicine, mag oxide, metoprolol tartrate, minoxidil, nifedipine, omeprazole, phosphorus, loratadine, Januvia, sulfamethoxazole, Bactrim and tacrolimus 8 mg p.o. q.a.m. REVIEW OF SYSTEMS CONSTITUTIONAL: No chills. No fatigue. No fever. No loss of appetite. No night sweats. No weakness. No weight loss. HEENT: No trouble swallowing. No loss of smell. No loss of hearing. No double vision. No pain. No discharge. ENT AND RESPIRATORY: No wheeze. No sore throat. No change in voice. No hearing loss. No nose bleed. No cough. No trouble breathing through nose. No shortness of breath. No coughing up blood. No epistaxis. CARDIOVASCULAR: No chest pain. No dizziness. No irregular heartbeat. No leg edema. No pain in legs while walking. No palpitations. No shortness of breath. DERMATOLOGIC: No acne. No hives. No laceration. No mole. No rash. ENDOCRINE: No cold intolerance. No diabetes. No fatigue. No hot flashes. No polydipsia. No polyuria. No urinating frequently. No weight loss. HEMATOLOGIC AND LYMPH: No fatigue. No easy bruising. GASTROENTEROLOGIC: No change in bowel habits. No indigestion. No frequent bloating. No vomiting blood. No abdominal cramping. No nausea. No heartburn. No vomiting. No abdominal pain. No dysphagia. No diarrhea. No constipation. No blood in stool. MALE REPRODUCTIVE: No testicular pain. No difficulty with erection. No diminished sexual drive. No penile discharge. MUSCULOSKELETAL: No back pain. No muscle pain or weakness. No neck pain. No tingling/numbness. No swelling/bruising. No osteoporosis treatment. OPHTHALMOLOGIC: No double vision. No diminished vision. No loss of vision. [place], [place] REPORT OF CONSULTATION NAME: LIVE JAMIL UNIT #: [id number] ROOM: [facility] DOCTOR: HEATHER ZAMORANO MD BIRTHDATE: [birth year] UROLOGIC: No dysuria. No frequent nighttime urination. No pain with urination. No difficulty urinating. No blood in urine. No frequent urination. No urinary incontinence. NEUROLOGIC: No loss of sensation in specific body area. No vertigo. No burning pain in feet. No trouble with balance. No trouble with coordination. No loss of consciousness. No loss of feeling/power. No confusion. No headache. No tingling/numbness. PSYCHOLOGIC: No tinnitus. No headaches. No shortness of breath. No weight decrease. No nausea. No vomiting. No abdominal discomfort. No constipation. No diarrhea. No depression. No anxiety. PHYSICAL EXAMINATION: GENERAL: Pleasant gentleman in no apparent distress. VITAL SIGNS: Stable, afebrile. Vital signs stable and fever. Blood pressure 128/66, respirations 15, pulse 97, temperature 99.2. HEENT: Oral mucosa appears intact. The external ears are normal in appearance. Nares are patent without lesions, exudates, erythema, or inflammation. Tongue is symmetrical. Uvula is midline. NECK AND THYROID: Neck supple without palpable masses. Trachea is midline. No thyromegaly. No carotid bruit or JVD. BREASTS: Normal. Nipples unremarkable. No drainage. No lumps felt on either side. HEART: Normal S1, S2, without significant murmur, rub, or gallop. LUNGS: Clear to auscultation and percussion with good air entry bilaterally. The patient is breathing easily without the use of accessory muscles. Diaphragmatic excursions are intact. ABDOMEN: No costovertebral angle tenderness. Soft. No organomegaly or masses. Nontender. No hernias present. Liver and spleen are not palpable. LYMPHATIC: No adenopathy noted in the cervical, supraclavicular, axillary, or inguinal regions. NEUROLOGIC: Nonfocal. Oriented to person, place, and time. MENTAL STATUS: Appropriate for mood and affect. PERIPHERAL PULSES: No varicosities. Femoral and pedal pulses are palpable. EXTREMITIES: Without cyanosis, clubbing, or edema. No gross anomalies. LABORATORY DATA: Sodium 138, potassium 4.3, chloride 104, bicarbonate 27, BUN 16, creatinine 1.46. White count of 5.4, hemoglobin 7.8, hematocrit 23.5, platelet count 72,000. IMPRESSION: 1. Neutropenic fever. 2. Neutropenia secondary to chemotherapy. 3. History of lymphoma undergoing chemotherapy at [place]. 4. Cellulitis of the trunk. PLAN: The patient is on broad-spectrum antibiotics. We will start growth factors and watch his counts closely. In the meantime, continue broad-spectrum antibiotics, keep a watch on the cellulitis of the trunk. His hemoglobin and hematocrit drops, then transfusion, he will ask further records from [place] depending on the further management discussed. We will follow. [place], [place] REPORT OF CONSULTATION NAME: LIVE JAMIL UNIT #: [id number] ROOM: [facility] DOCTOR: HEATHER ZAMORANO MD BIRTHDATE: [birth year] Thanks for consulting and letting me participate in the care of this interesting patient. HEATHER ZAMORANO MD CM:CONSTR:REPORT OF CONSULTATION 0845 09/29/17 1202 interface
[2017-09-28 22:26] VITALS: BP 128/66
--- NOTE | 2017-09-28 22:38 | NUR ---
PT PROMPTED FOR URINE SPECIMEN.
[2017-09-28 23:30] LABS: BASO % 5.9 % (0.0-1.0); EOS % 11.8 % (1.0-4.0); HEMOGLOBIN 8.8 g/dl (14.0-18.0); LYMPH # 0.2 10*3/uL (1.3-4.4); LYMPH % 55.9 % (27.0-41.0); MEAN CELL VOLUME 86.7 fl (80.0-94.0); MEAN CORPUSCULAR HGB 29.3 pg (27.0-31.0); MEAN CORPUSCULAR HGB CONC 33.8 g/dl (33.0-37.0); MEAN PLATELET VOLUME 12.4 fl (9.6-12.3); MONO # 0.1 10*3/uL (0.1-1.0); MONO % 14.7 % (3.0-9.0); NEUT % 11.7 % (47.0-73.0); PLATELET COUNT AUTOMATED 70 10*3/uL (130-400); RED CELL DISTRI WIDTH 13.9 % (0-14.5)
[2017-09-28 23:45] LABS: ALBUMIN 3.5 gm/dl (3.1-4.5); ALKALINE PHOSPHATASE 79 U/L (45-117); BUN 16 mg/dl (7-24); CHLORIDE 104 mmol/L (98-107); CREATININE 1.46 mg/dL (0.70-1.30); POTASSIUM 4.3 mmol/L (3.5-5.1); SGOT/AST 33 IU/L (3-35); SGPT/ALT 78 U/L (12-78); SODIUM 138 mmol/L (136-145); TOTAL PROTEIN 6.5 gm/dL (6.4-8.2)
[2017-09-28 23:47] LABS: BILIRUBIN 1+ (NEGATIVE); BLOOD TRACE-INTACT (NEGATIVE); CLARITY CLEAR (CLEAR); COLOR YELLOW (YELLOW); GLUCOSE NEGATIVE (NEGATIVE); KETONE NEGATIVE (NEGATIVE); LEUKO ESTERASE NEGATIVE (NEGATIVE); NITRITE NEGATIVE (NEGATIVE); UROBILINOGEN 0.2 E.U./dl (0.2-1.0)
[2017-09-29 00:07] LABS: BASOPHILS 15 % (0-1); MICROCYTOSIS SLIGHT; PLATELET SUFFICIENCY LOW (NORMAL); TOTAL CELLS COUNTED 100 #CELLS
[2017-09-29 00:08] LABS: OVALOCYTES FEW
[2017-09-29 00:10] LABS: WHITE BLOOD COUNT 0.3 10*3/uL (4.8-10.8)
--- NOTE | 2017-09-29 00:10 | NUR ---
DR. JIN NOTIFIED OF CRITICAL LOW WBC OF 0.3
[2017-09-29 00:40] VITALS: BP 144/72
--- NOTE | 2017-09-29 01:09 | NUR ---
THIS RN CALLED TO GIVE REPORT.NURSE TO RETURN CALL.
[2017-09-29 01:45] VITALS: BP 140/81
--- NOTE | 2017-09-29 01:45 | NUR ---
A 37 YEAR OLD MALE admitted to ICCU, under the services of MAGED Alejandro MD with a diagnosis of NEUTROPENIC FEVER. Chief complaint is TEMP OF 100.6 AT HOME. Patient arrived via stretcher from ER. Monitor applied. Initial assessment completed. Vital signs taken and recorded. MAGED ALEJANDRO MD notified of admission to the unit. Orders received. See assessment for past medical history, medications and allergies. Patient and/or family oriented to unit. [facility]U visitation policy reviewed. Clothing/patient valuable form completed. CANDE AMAYA
[2017-09-29] MEDS ORDERED: LANTUS SOL100 UNIT/1 SQ (02:22)
--- NOTE | 2017-09-29 03:06 | NUR ---
MEDS GONE OVER WITH PT, WHO IS ALERT AND ORIENTED. MED REC UPDATED.
--- NOTE | 2017-09-29 03:14 | NUR ---
0300 TYLENOL 2 PO FOR C/O'S GENERALIZED ACHING FROM TEMP. WILL MONITOR. RESTING IN BED WITH EYES CLOSED.
--- NOTE | 2017-09-29 03:16 | NUR ---
FLUID BOLUS INFUSING PER ORDER. MONITOR NSR. NEUTROPENIC PRECAUTIONS MAINTAINED. PROPER SIGN ON DOOR.
--- NOTE | 2017-09-29 03:21 | NUR ---
PIMPLE-LIKE AREA NOTED RLQ OF ABD. RED IN APPEARANCE. NO DRNG NOTED.
--- NOTE | 2017-09-29 03:54 | NUR ---
EARLIER TYLENOL EFFECTIVE.
[2017-09-29 04:00] VITALS: BP 128/62
--- NOTE | 2017-09-29 04:21 | NUR ---
ORAL TEMP 100.6. RESTING IN BED WITH EYES CLOSED. IV FLUIDS INFUSING WELL AT 125C/HR. URINAL AT BEDSIDE. VOIDS QS.
[2017-09-29 05:50] LABS: ALBUMIN 3.1 gm/dl (3.1-4.5); ALKALINE PHOSPHATASE 67 U/L (45-117); BUN 13 mg/dl (7-24); CHLORIDE 108 mmol/L (98-107); CREATININE 1.31 mg/dL (0.70-1.30); PHOSPHOROUS 2.2 mg/dL (2.5-4.9); POTASSIUM 3.8 mmol/L (3.5-5.1); SGOT/AST 25 IU/L (3-35); SGPT/ALT 62 U/L (12-78); SODIUM 140 mmol/L (136-145); TOTAL PROTEIN 5.8 gm/dL (6.4-8.2)
--- NOTE | 2017-09-29 06:10 | NUR ---
NO DISTRESS NOTED. IV FLUIDS CONT. ISOLATION CONT. CONDITION GUARDED.
[2017-09-29 06:14] LABS: ACT PARTIAL THROMBO TIME 30.3 SECONDS (20.8-31.5); INTERNATIONAL NORM RATIO 1.1 (2.0-3.5)
[2017-09-29 06:26] LABS: HEMATOCRIT 23.5 % (42.0-52.0); HEMOGLOBIN 7.8 g/dl (14.0-18.0); MEAN CELL VOLUME 87.4 fl (80.0-94.0); MEAN CORPUSCULAR HGB CONC 33.2 g/dl (33.0-37.0); MEAN PLATELET VOLUME 12.4 fl (9.6-12.3); PLATELET COUNT AUTOMATED 72 10*3/uL (130-400); RED BLOOD COUNT 2.69 10*6/uL (4.50-5.90); RED CELL DISTRI WIDTH 14.1 % (0-14.5)
--- NOTE | 2017-09-29 06:42 | NUR ---
ANSWERING SERVICE NOTIFIED OF DR.JOHN OHARA
[2017-09-29 06:53] LABS: BASOPHILS 4 % (0-1); TOTAL CELLS COUNTED 50 #CELLS
[2017-09-29 06:54] LABS: PLATELET SUFFICIENCY LOW (NORMAL); POLYCHROMASIA SLIGHT
[2017-09-29 06:55] LABS: WHITE BLOOD COUNT 0.4 10*3/uL (4.8-10.8)
[2017-09-29 08:00] VITALS: BP 97/59
--- NOTE | 2017-09-29 08:10 | NUR ---
PT MEDICATED WITH TYLENOL AT HIS REQUEST FOR C/O BODY ACHES.
--- NOTE | 2017-09-29 08:46 | NUR ---
DR ZAMORANO IN TO SEE PT.
--- NOTE | 2017-09-29 09:24 | NUR ---
DR ALVARES IN TO SEE PT.
--- NOTE | 2017-09-29 10:02 | NUR ---
RONALDO AT DR CASTREJON'S ANSWERING SERVICE MADE AWARE OF NEW CONSULT ORDER.
--- NOTE | 2017-09-29 11:58 | NUR ---
DR CASTREJON IN TO SEE PT.
--- NOTE | 2017-09-29 12:37 | NUR ---
PT TO BE TRANSFERED TO [facility]. GERARDO FROM MED CALL REQUESTED DEMOGRAPHICS SENT TO THEM.
[2017-09-29 14:00] VITALS: BP 127/64
--- NOTE | 2017-09-29 14:33 | NUR ---
REPORT GIVEN TO JANIA AT [facility].
--- NOTE | 2017-09-29 15:47 | NUR ---
[facility] HERE TO TRANSPORT PT TO [facility]. FAMILY WITH PT AT TIME OF DISCHARGE.
== END 2017-09-29 15:47 | disposition short-term general hospital (02) | DRG 872 ==
LOC: ED 22:18 → ICCU 09-29 00:43 → EDHOLD 09-29 00:43 → ICCU 09-29 01:00
PROVIDERS: Family Medicine; Student in an Organized Health Care Education/Training Program; ADMIT Internal Medicine
PROC: 5A09357 Assistance with Respiratory Ventilation, Less than 24 Consecutive Hours, Continuous Positive Airway Pressure (ICD-10-PCS; principal; 2017-09-29)
DX: A41.9 Sepsis, unspecified organism (principal); D61.818 Other pancytopenia; E11.22 Type 2 diabetes mellitus with diabetic chronic kidney disease; C85.90 Non-Hodgkin lymphoma, unspecified, unspecified site; N18.3 Chronic kidney disease, stage 3 (moderate); L03.311 Cellulitis of abdominal wall; Z68.41 Body mass index [BMI] 40.0-44.9, adult; Z94.0 Kidney transplant status; E11.65 Type 2 diabetes mellitus with hyperglycemia; T45.1X5A Adverse effect of antineoplastic and immunosuppressive drugs, initial encounter; E66.01 Morbid (severe) obesity due to excess calories; E83.39 Other disorders of phosphorus metabolism; K21.9 Gastro-esophageal reflux disease without esophagitis; E83.42 Hypomagnesemia; R50.81 Fever presenting with conditions classified elsewhere; D64.9 Anemia, unspecified; M1A.9XX0 Chronic gout, unspecified, without tophus (tophi); I12.9 Hypertensive chronic kidney disease with stage 1 through stage 4 chronic kidney disease, or unspecified chronic kidney disease; Z86.69 Personal history of other diseases of the nervous system and sense organs; Z79.4 Long term (current) use of insulin; Z82.49 Family history of ischemic heart disease and other diseases of the circulatory system; Y92.89 Other specified places as the place of occurrence of the external cause; Z79.899 Other long term (current) drug therapy

== ENCOUNTER → 2017-12-13 | Outpatient (CLI) | payer MEDICARE ==
[~2017-12-13] MED LIST changes: +LANTUS SOL100 UNIT/1 SQ
[2017-12-13 09:42] LABS: HEMATOCRIT 33.4 % (42.0-52.0); HEMOGLOBIN 11.4 g/dl (14.0-18.0); MEAN CELL VOLUME 87.4 fl (80.0-94.0); MEAN CORPUSCULAR HGB 29.8 pg (27.0-31.0); MEAN CORPUSCULAR HGB CONC 34.1 g/dl (33.0-37.0); MEAN PLATELET VOLUME 11.2 fl (9.6-12.3); PLATELET COUNT AUTOMATED 180 10*3/uL (130-400); RED BLOOD COUNT 3.82 10*6/uL (4.50-5.90); RED CELL DISTRI WIDTH 14.4 % (0-14.5); WHITE BLOOD COUNT 3.8 10*3/uL (4.8-10.8)
[2017-12-13 09:53] LABS: CREATININE 1.89 mg/dL (0.70-1.30); PHOSPHOROUS 2.7 mg/dL (2.5-4.9); POTASSIUM 4.2 mmol/L (3.5-5.1); URIC ACID 9.3 mg/dL (3.5-7.2)
[2017-12-13 10:25] LABS: BASOPHILS 1 % (0-1); OVALOCYTES FEW; PLATELET SUFFICIENCY NORMAL (NORMAL); POLYCHROMASIA SLIGHT; TOTAL CELLS COUNTED 100 #CELLS
== END | disposition home or self-care (01) ==
LOC: LAB 09:00
PROVIDERS: Internal Medicine Nephrology
DX: Z48.22 Encounter for aftercare following kidney transplant (principal); Z94.0 Kidney transplant status

== ENCOUNTER → 2017-12-29 | Day surgery (SDC) | payer MEDICARE ==
[~2017-12-29] VITALS: Ht 182.8 cm; Wt 135.2 kg
[~2017-12-29] MED LIST changes: +PERCOCET 5-3251 EACH PO
--- NOTE | ~2017-12-29 | PROC NOTE ---
[place], [place] PROCEDURE NOTE NAME: [facility] #: [id number] UNIT #: [id number] ROOM: DOCTOR: JULIO CÉSAR ALVARENGA MD BIRTHDATE: [birth year] DOS: 12/29/2017 PREOPERATIVE DIAGNOSIS: Right thigh MediPort. POSTOPERATIVE DIAGNOSIS: Right thigh MediPort. PROCEDURE: Removal of right thigh MediPort. SURGEON: Julio César Alvarenga MD MEMORIAL COUNSELOR: LIVAN. ANESTHESIA: MAC with local. INDICATIONS: This is a 37-year-old gentleman who had history of right thigh MediPort placed for chemotherapy, who is here for the removal of this MediPort. The procedure and its complications were explained to the patient in detail preoperatively. Complications that were discussed included but were not limited to bleeding, infection, hematoma/seroma/abscess formation and prolonged pain. He agreed to proceed. DESCRIPTION OF PROCEDURE: After identifying the patient, the patient was brought to the operating suite and laid in the supine position. After IV sedation was administered, a timeout procedure was called and the parts were then painted and draped in the usual sterile fashion. Incision was marked and 1% plain lidocaine was injected in the marked site. The skin incision was made and deepened in layers until to the MediPort was identified. It was dissected away from the sheath and the suture was cut. The port was then removed in its entirety and sent for histopathological diagnosis. Hemostasis was achieved with the help of electrocautery and pressure. After hemostasis was confirmed, the subcutaneous tissue and the sheath were approximated in a single layer with the help of 3-0 Vicryl. The skin edges were then approximated with the help of 4-0 Vicryl in a subcuticular fashion. A dressing was placed. The patient tolerated procedure well and was taken to the recovery room in stable fashion. There were no complications. Dr. Julio César Alvarenga, the attending surgeon, was present throughout the operating case. Julio César Alvarenga MD CM:PROCNOTE:PROCEDURE NOTE [id number] JULIO CÉSAR ALVARENGA MD
[2017-12-29 09:45] VITALS: BP 105/62
[2017-12-29 11:10] VITALS: BP 128/74
[2017-12-29 11:25] VITALS: BP 128/69
[2017-12-29 11:34] VITALS: BP 122/77
== END | disposition home or self-care (01) ==
LOC: SDC 12-28 08:00
DX: Z45.2 Encounter for adjustment and management of vascular access device (principal); T86.10 Unspecified complication of kidney transplant; D47.Z1 Post-transplant lymphoproliferative disorder (PTLD); K21.9 Gastro-esophageal reflux disease without esophagitis; G47.30 Sleep apnea, unspecified; I12.0 Hypertensive chronic kidney disease with stage 5 chronic kidney disease or end stage renal disease; N18.6 End stage renal disease; Z99.2 Dependence on renal dialysis; Z79.899 Other long term (current) drug therapy; Z79.4 Long term (current) use of insulin; C85.90 Non-Hodgkin lymphoma, unspecified, unspecified site; D64.9 Anemia, unspecified; E11.22 Type 2 diabetes mellitus with diabetic chronic kidney disease

== ENCOUNTER 2018-02-13 18:24 | Emergency (ER) | payer MEDICARE ==
[~2018-02-13] VITALS: Wt 136.1 kg
[2018-02-13 19:05] LABS: HEMATOCRIT 31.9 % (42.0-52.0); HEMOGLOBIN 10.8 g/dl (14.0-18.0); MEAN CELL VOLUME 84.6 fl (80.0-94.0); MEAN CORPUSCULAR HGB 28.6 pg (27.0-31.0); MEAN CORPUSCULAR HGB CONC 33.9 g/dl (33.0-37.0); MEAN PLATELET VOLUME 10.3 fl (9.6-12.3); PLATELET COUNT AUTOMATED 166 10*3/uL (130-400); RED BLOOD COUNT 3.77 10*6/uL (4.50-5.90); RED CELL DISTRI WIDTH 12.6 % (0-14.5)
[2018-02-13 19:08] LABS: WHITE BLOOD COUNT 0.6 10*3/uL (4.8-10.8)
[2018-02-13 19:19] LABS: ALBUMIN 4.1 gm/dl (3.1-4.5); CREATININE 2.54 mg/dL (0.70-1.30); POTASSIUM 3.9 mmol/L (3.5-5.1); TOTAL PROTEIN 7.2 gm/dL (6.4-8.2)
[2018-02-13 19:28] LABS: TOTAL CELLS COUNTED 100 #CELLS
[2018-02-13 19:29] LABS: BURR CELLS FEW; PLATELET SUFFICIENCY NORMAL (NORMAL)
== END 2018-02-13 20:08 | disposition left against medical advice (07) ==
LOC: ED 18:24
PROVIDERS: Nurse Practitioner Family
DX: K04.7 Periapical abscess without sinus (principal); D70.9 Neutropenia, unspecified; H92.02 Otalgia, left ear; R42 Dizziness and giddiness; Z79.899 Other long term (current) drug therapy

== ENCOUNTER → 2018-02-27 | Outpatient (CLI) | payer MEDICARE ==
[2018-02-27 09:39] LABS: HEMATOCRIT 31.8 % (42.0-52.0); HEMOGLOBIN 10.5 g/dl (14.0-18.0); MEAN CELL VOLUME 85.3 fl (80.0-94.0); MEAN CORPUSCULAR HGB 28.2 pg (27.0-31.0); MEAN PLATELET VOLUME 12.9 fl (9.6-12.3); PLATELET COUNT AUTOMATED 72 10*3/uL (130-400); RED BLOOD COUNT 3.73 10*6/uL (4.50-5.90); RED CELL DISTRI WIDTH 12.8 % (0-14.5)
[2018-02-27 10:05] LABS: CREATININE 1.61 mg/dL (0.70-1.30); PHOSPHOROUS 2.4 mg/dL (2.5-4.9); POTASSIUM 4.7 mmol/L (3.5-5.1)
[2018-02-27 10:39] LABS: OVALOCYTES FEW; PLATELET SUFFICIENCY LOW (NORMAL); POLYCHROMASIA SLIGHT; TOTAL CELLS COUNTED 100 #CELLS
[2018-02-27 10:43] LABS: WHITE BLOOD COUNT 1.3 10*3/uL (4.8-10.8)
== END | disposition home or self-care (01) ==
LOC: LAB 09:15
PROVIDERS: Internal Medicine Nephrology
DX: Z48.22 Encounter for aftercare following kidney transplant (principal); Z94.0 Kidney transplant status

== ENCOUNTER → 2018-03-06 | Outpatient (CLI) | payer MEDICARE ==
[2018-03-06 12:17] LABS: HEMATOCRIT 31.3 % (42.0-52.0); HEMOGLOBIN 10.2 g/dl (14.0-18.0); MEAN CELL VOLUME 87.9 fl (80.0-94.0); MEAN CORPUSCULAR HGB 28.7 pg (27.0-31.0); MEAN CORPUSCULAR HGB CONC 32.6 g/dl (33.0-37.0); MEAN PLATELET VOLUME 11.8 fl (9.6-12.3); PLATELET COUNT AUTOMATED 123 10*3/uL (130-400); RED BLOOD COUNT 3.56 10*6/uL (4.50-5.90); RED CELL DISTRI WIDTH 14.6 % (0-14.5)
[2018-03-06 12:38] LABS: BUN 18 mg/dl (7-24); CHLORIDE 108 mmol/L (98-107); CREATININE 1.49 mg/dL (0.70-1.30); PHOSPHOROUS 2.2 mg/dL (2.5-4.9); POTASSIUM 4.2 mmol/L (3.5-5.1); SODIUM 140 mmol/L (136-145); URIC ACID 8.1 mg/dL (3.5-7.2)
[2018-03-06 12:46] LABS: BASOPHILS 6 % (0-1); TOTAL CELLS COUNTED 50 #CELLS
[2018-03-06 12:47] LABS: OVALOCYTES MODERATE; PLATELET SUFFICIENCY LOW (NORMAL)
[2018-03-06 12:58] LABS: WHITE BLOOD COUNT 0.5 10*3/uL (4.8-10.8)
== END | disposition home or self-care (01) ==
LOC: LAB 11:28
PROVIDERS: Internal Medicine Nephrology
DX: Z48.22 Encounter for aftercare following kidney transplant (principal); Z94.0 Kidney transplant status

== ENCOUNTER → 2018-03-28 | Outpatient (CLI) | payer MEDICARE ==
[~2018-03-28] MED LIST changes: +NORVASC10 MG PO
[2018-03-28 11:28] LABS: HEMATOCRIT 32.4 % (42.0-52.0); HEMOGLOBIN 10.7 g/dl (14.0-18.0); MEAN CELL VOLUME 84.8 fl (80.0-94.0); MEAN PLATELET VOLUME 12.8 fl (9.6-12.3); PLATELET COUNT AUTOMATED 95 10*3/uL (130-400); RED BLOOD COUNT 3.82 10*6/uL (4.50-5.90); RED CELL DISTRI WIDTH 14.8 % (0-14.5)
[2018-03-28 11:33] LABS: BUN 13 mg/dl (7-24); CHLORIDE 109 mmol/L (98-107); CREATININE 1.32 mg/dL (0.70-1.30); PHOSPHOROUS 2.4 mg/dL (2.5-4.9); POTASSIUM 4.6 mmol/L (3.5-5.1); SODIUM 145 mmol/L (136-145); URIC ACID 9.6 mg/dL (3.5-7.2)
[2018-03-28 12:18] LABS: BASOPHILS 1 % (0-1); PLATELET SUFFICIENCY LOW (NORMAL); TOTAL CELLS COUNTED 100 #CELLS
[2018-03-28 12:32] LABS: WHITE BLOOD COUNT 1.6 10*3/uL (4.8-10.8)
== END | disposition home or self-care (01) ==
LOC: LAB 10:41
PROVIDERS: Internal Medicine Nephrology
DX: D70.9 Neutropenia, unspecified (principal); Z94.0 Kidney transplant status

== ENCOUNTER → 2018-04-10 | Outpatient (CLI) | payer MEDICARE ==
[2018-04-10 09:42] LABS: HEMATOCRIT 35.9 % (42.0-52.0); HEMOGLOBIN 11.6 g/dl (14.0-18.0); MEAN CELL VOLUME 84.5 fl (80.0-94.0); MEAN CORPUSCULAR HGB 27.3 pg (27.0-31.0); MEAN CORPUSCULAR HGB CONC 32.3 g/dl (33.0-37.0); MEAN PLATELET VOLUME 11.1 fl (9.6-12.3); PLATELET COUNT AUTOMATED 206 10*3/uL (130-400); RED BLOOD COUNT 4.25 10*6/uL (4.50-5.90); RED CELL DISTRI WIDTH 15.6 % (0-14.5)
[2018-04-10 10:06] LABS: BASOPHILS 3 % (0-1); BURR CELLS MODERATE; OVALOCYTES MODERATE; PLATELET SUFFICIENCY NORMAL (NORMAL); POLYCHROMASIA SLIGHT; TOTAL CELLS COUNTED 72 #CELLS
[2018-04-10 10:11] LABS: WHITE BLOOD COUNT 0.7 10*3/uL (4.8-10.8)
== END | disposition home or self-care (01) ==
LOC: LAB 08:55
PROVIDERS: Internal Medicine Hematology & Oncology
DX: Z51.11 Encounter for antineoplastic chemotherapy (principal); Z45.2 Encounter for adjustment and management of vascular access device; I10 Essential (primary) hypertension; T86.99 Other complications of unspecified transplanted organ and tissue; K21.9 Gastro-esophageal reflux disease without esophagitis; G47.30 Sleep apnea, unspecified; E86.0 Dehydration; D70.1 Agranulocytosis secondary to cancer chemotherapy; R11.2 Nausea with vomiting, unspecified; C83.31 Diffuse large B-cell lymphoma, lymph nodes of head, face, and neck; D70.9 Neutropenia, unspecified

== ENCOUNTER → 2018-04-24 | Outpatient (CLI) | payer MEDICARE ==
[2018-04-24 10:20] LABS: BASO # 0.1 10*3/uL (0.0-0.1); BASO % 3.3 % (0.0-1.0); EOS # 0.1 10*3/uL (0.0-0.4); EOS % 3.8 % (1.0-4.0); HEMATOCRIT 36.3 % (42.0-52.0); HEMOGLOBIN 11.9 g/dl (14.0-18.0); LYMPH # 0.4 10*3/uL (1.3-4.4); LYMPH % 16.5 % (27.0-41.0); MEAN CELL VOLUME 82.9 fl (80.0-94.0); MEAN CORPUSCULAR HGB 27.2 pg (27.0-31.0); MEAN CORPUSCULAR HGB CONC 32.8 g/dl (33.0-37.0); MEAN PLATELET VOLUME 10.4 fl (9.6-12.3); MONO # 0.2 10*3/uL (0.1-1.0); NEUT # 1.5 10*3/uL (2.3-7.9); NEUT % 68.4 % (47.0-73.0); PLATELET COUNT AUTOMATED 130 10*3/uL (130-400); RED BLOOD COUNT 4.38 10*6/uL (4.50-5.90); WHITE BLOOD COUNT 2.1 10*3/uL (4.8-10.8)
[2018-04-24 10:34] LABS: ALBUMIN 3.8 gm/dl (3.1-4.5); ALKALINE PHOSPHATASE 102 U/L (45-117); BUN 16 mg/dl (7-24); CHLORIDE 106 mmol/L (98-107); CREATININE 1.46 mg/dL (0.70-1.30); POTASSIUM 4.4 mmol/L (3.5-5.1); SGOT/AST 26 IU/L (3-35); SGPT/ALT 61 U/L (12-78); SODIUM 142 mmol/L (136-145); TOTAL PROTEIN 6.9 gm/dL (6.4-8.2); URIC ACID 7.1 mg/dL (3.5-7.2)
== END | disposition home or self-care (01) ==
LOC: LAB 10:00 → INJECTION 10:00
PROVIDERS: Internal Medicine Hematology & Oncology
DX: Z51.11 Encounter for antineoplastic chemotherapy (principal); I10 Essential (primary) hypertension; K21.9 Gastro-esophageal reflux disease without esophagitis; C83.31 Diffuse large B-cell lymphoma, lymph nodes of head, face, and neck; D70.1 Agranulocytosis secondary to cancer chemotherapy; D47.Z1 Post-transplant lymphoproliferative disorder (PTLD); D70.9 Neutropenia, unspecified; G47.30 Sleep apnea, unspecified; E86.0 Dehydration; R11.2 Nausea with vomiting, unspecified; T86.99 Other complications of unspecified transplanted organ and tissue; Z94.0 Kidney transplant status

== ENCOUNTER → 2018-05-01 | Outpatient (CLI) | payer MEDICARE ==
[2018-05-01 11:39] LABS: HEMATOCRIT 37.9 % (42.0-52.0); HEMOGLOBIN 12.3 g/dl (14.0-18.0); MEAN CORPUSCULAR HGB 27.3 pg (27.0-31.0); MEAN CORPUSCULAR HGB CONC 32.5 g/dl (33.0-37.0); MEAN PLATELET VOLUME 11.1 fl (9.6-12.3); PLATELET COUNT AUTOMATED 148 10*3/uL (130-400); RED BLOOD COUNT 4.51 10*6/uL (4.50-5.90); RED CELL DISTRI WIDTH 16.7 % (0-14.5)
[2018-05-01 12:04] LABS: BASOPHILS 8 % (0-1); TOTAL CELLS COUNTED 75 #CELLS
[2018-05-01 12:05] LABS: BUN 19 mg/dl (7-24); CHLORIDE 109 mmol/L (98-107); POTASSIUM 4.4 mmol/L (3.5-5.1); SODIUM 144 mmol/L (136-145); URIC ACID 8.2 mg/dL (3.5-7.2)
[2018-05-01 12:06] LABS: CREATININE 1.52 mg/dL (0.70-1.30); PHOSPHOROUS 3.3 mg/dL (2.5-4.9); PLATELET SUFFICIENCY NORMAL (NORMAL)
[2018-05-01 12:07] LABS: WHITE BLOOD COUNT 0.6 10*3/uL (4.8-10.8)
== END | disposition home or self-care (01) ==
LOC: LAB 11:12
PROVIDERS: Internal Medicine Nephrology
DX: Z48.22 Encounter for aftercare following kidney transplant (principal); Z94.0 Kidney transplant status

== ENCOUNTER → 2018-05-08 | Outpatient (CLI) | payer MEDICARE ==
[2018-05-08 10:42] LABS: HEMATOCRIT 38.1 % (42.0-52.0); HEMOGLOBIN 12.5 g/dl (14.0-18.0); MEAN CELL VOLUME 80.9 fl (80.0-94.0); MEAN CORPUSCULAR HGB 26.5 pg (27.0-31.0); MEAN CORPUSCULAR HGB CONC 32.8 g/dl (33.0-37.0); MEAN PLATELET VOLUME 9.8 fl (9.6-12.3); PLATELET COUNT AUTOMATED 165 10*3/uL (130-400); RED BLOOD COUNT 4.71 10*6/uL (4.50-5.90); RED CELL DISTRI WIDTH 15.8 % (0-14.5)
[2018-05-08 11:08] LABS: BASOPHILS 8 % (0-1); TOTAL CELLS COUNTED 52 #CELLS
[2018-05-08 11:09] LABS: OVALOCYTES MODERATE; PLATELET SUFFICIENCY NORMAL (NORMAL)
== END | disposition home or self-care (01) ==
LOC: LAB 10:10
PROVIDERS: Internal Medicine Hematology & Oncology
DX: T86.99 Other complications of unspecified transplanted organ and tissue (principal); D47.Z1 Post-transplant lymphoproliferative disorder (PTLD); D70.1 Agranulocytosis secondary to cancer chemotherapy; C83.31 Diffuse large B-cell lymphoma, lymph nodes of head, face, and neck; D70.9 Neutropenia, unspecified; R11.2 Nausea with vomiting, unspecified

== ENCOUNTER → 2018-05-22 | Outpatient (CLI) | payer MEDICARE ==
[2018-05-22 10:32] LABS: HEMATOCRIT 39.3 % (42.0-52.0); HEMOGLOBIN 12.8 g/dl (14.0-18.0); MEAN CELL VOLUME 82.6 fl (80.0-94.0); MEAN CORPUSCULAR HGB 26.9 pg (27.0-31.0); MEAN CORPUSCULAR HGB CONC 32.6 g/dl (33.0-37.0); MEAN PLATELET VOLUME 11.9 fl (9.6-12.3); PLATELET COUNT AUTOMATED 171 10*3/uL (130-400); RED BLOOD COUNT 4.76 10*6/uL (4.50-5.90); RED CELL DISTRI WIDTH 17.3 % (0-14.5)
[2018-05-22 10:52] LABS: BASOPHILS 9 % (0-1); TOTAL CELLS COUNTED 100 #CELLS
[2018-05-22 10:53] LABS: OVALOCYTES MODERATE; PLATELET SUFFICIENCY NORMAL (NORMAL); POLYCHROMASIA SLIGHT
[2018-05-22 10:55] LABS: WHITE BLOOD COUNT 0.8 10*3/uL (4.8-10.8)
== END | disposition home or self-care (01) ==
LOC: LAB 09:48
PROVIDERS: Internal Medicine Hematology & Oncology
DX: Z51.11 Encounter for antineoplastic chemotherapy (principal); C83.30 Diffuse large B-cell lymphoma, unspecified site; T86.99 Other complications of unspecified transplanted organ and tissue; D70.1 Agranulocytosis secondary to cancer chemotherapy; R11.2 Nausea with vomiting, unspecified; D47.Z1 Post-transplant lymphoproliferative disorder (PTLD)

== ENCOUNTER → 2018-05-29 | Outpatient (CLI) | payer MEDICARE ==
[2018-05-29 12:43] LABS: HEMATOCRIT 39.4 % (42.0-52.0); MEAN CELL VOLUME 83.3 fl (80.0-94.0); MEAN CORPUSCULAR HGB 27.5 pg (27.0-31.0); MEAN PLATELET VOLUME 11.9 fl (9.6-12.3); PLATELET COUNT AUTOMATED 157 10*3/uL (130-400); RED BLOOD COUNT 4.73 10*6/uL (4.50-5.90); RED CELL DISTRI WIDTH 17.3 % (0-14.5)
[2018-05-29 13:08] LABS: BASOPHILS 3 % (0-1); TOTAL CELLS COUNTED 100 #CELLS
[2018-05-29 13:09] LABS: OVALOCYTES MODERATE; PLATELET SUFFICIENCY NORMAL (NORMAL)
[2018-05-29 13:14] LABS: WHITE BLOOD COUNT 1.1 10*3/uL (4.8-10.8)
== END | disposition home or self-care (01) ==
LOC: LAB 11:55
PROVIDERS: Internal Medicine Hematology & Oncology
DX: Z51.11 Encounter for antineoplastic chemotherapy (principal); Z45.2 Encounter for adjustment and management of vascular access device; D47.Z1 Post-transplant lymphoproliferative disorder (PTLD); D70.1 Agranulocytosis secondary to cancer chemotherapy; R11.2 Nausea with vomiting, unspecified; C83.30 Diffuse large B-cell lymphoma, unspecified site; T88.7XXA Unspecified adverse effect of drug or medicament, initial encounter; T86.99 Other complications of unspecified transplanted organ and tissue

== ENCOUNTER → 2018-07-03 | Outpatient (CLI) | payer MEDICARE ==
[2018-07-03 12:17] LABS: HEMATOCRIT 40.9 % (42.0-52.0); HEMOGLOBIN 13.3 g/dl (14.0-18.0); MEAN CELL VOLUME 84.5 fl (80.0-94.0); MEAN CORPUSCULAR HGB 27.5 pg (27.0-31.0); MEAN CORPUSCULAR HGB CONC 32.5 g/dl (33.0-37.0); MEAN PLATELET VOLUME 11.3 fl (9.6-12.3); PLATELET COUNT AUTOMATED 141 10*3/uL (130-400); RED BLOOD COUNT 4.84 10*6/uL (4.50-5.90); WHITE BLOOD COUNT 2.3 10*3/uL (4.8-10.8)
[2018-07-03 12:44] LABS: BUN 15 mg/dl (7-24); CHLORIDE 107 mmol/L (98-107); POTASSIUM 4.2 mmol/L (3.5-5.1); SODIUM 142 mmol/L (136-145)
[2018-07-03 12:46] LABS: CREATININE 1.48 mg/dL (0.70-1.30); PHOSPHOROUS 2.9 mg/dL (2.5-4.9); URIC ACID 10.2 mg/dL (3.5-7.2)
[2018-07-03 13:14] LABS: BASOPHILS 3 % (0-1); TOTAL CELLS COUNTED 100 #CELLS
[2018-07-03 13:15] LABS: OVALOCYTES FEW; PLATELET SUFFICIENCY NORMAL (NORMAL)
== END | disposition home or self-care (01) ==
LOC: LAB 11:27
PROVIDERS: Internal Medicine Hematology & Oncology
DX: Z51.11 Encounter for antineoplastic chemotherapy (principal); Z45.2 Encounter for adjustment and management of vascular access device; C83.31 Diffuse large B-cell lymphoma, lymph nodes of head, face, and neck; D70.9 Neutropenia, unspecified; D70.1 Agranulocytosis secondary to cancer chemotherapy; D47.Z1 Post-transplant lymphoproliferative disorder (PTLD); T86.99 Other complications of unspecified transplanted organ and tissue; R11.2 Nausea with vomiting, unspecified; Z94.0 Kidney transplant status

== ENCOUNTER 2018-07-09 20:33 | Emergency (ER) | payer MEDICARE ==
[~2018-07-09] VITALS: Ht 182.8 cm; Wt 129.3 kg
== END 2018-07-10 00:35 | disposition home or self-care (01) ==
LOC: ED 20:33
DX: G43.909 Migraine, unspecified, not intractable, without status migrainosus (principal); Z88.1 Allergy status to other antibiotic agents; Z79.899 Other long term (current) drug therapy

== ENCOUNTER → 2018-07-10 | Outpatient (CLI) | payer MEDICARE ==
[2018-07-10 10:08] LABS: HEMATOCRIT 40.4 % (42.0-52.0); MEAN CELL VOLUME 86.9 fl (80.0-94.0); MEAN CORPUSCULAR HGB CONC 32.2 g/dl (33.0-37.0); MEAN PLATELET VOLUME 11.7 fl (9.6-12.3); PLATELET COUNT AUTOMATED 142 10*3/uL (130-400); RED BLOOD COUNT 4.65 10*6/uL (4.50-5.90); RED CELL DISTRI WIDTH 16.9 % (0-14.5)
[2018-07-10 10:36] LABS: BASOPHILS 6 % (0-1); TOTAL CELLS COUNTED 100 #CELLS
[2018-07-10 10:37] LABS: OVALOCYTES FEW; PLATELET SUFFICIENCY NORMAL (NORMAL); POLYCHROMASIA SLIGHT
== END | disposition home or self-care (01) ==
LOC: LAB 09:31
PROVIDERS: Internal Medicine Hematology & Oncology
DX: Z51.11 Encounter for antineoplastic chemotherapy (principal); C83.30 Diffuse large B-cell lymphoma, unspecified site; D47.Z1 Post-transplant lymphoproliferative disorder (PTLD); D70.1 Agranulocytosis secondary to cancer chemotherapy; R11.2 Nausea with vomiting, unspecified; T86.99 Other complications of unspecified transplanted organ and tissue

== ENCOUNTER → 2018-07-24 | Outpatient (CLI) | payer MEDICARE ==
[2018-07-24 11:14] LABS: HEMOGLOBIN 13.6 g/dl (14.0-18.0); MEAN CELL VOLUME 85.4 fl (80.0-94.0); MEAN CORPUSCULAR HGB 28.3 pg (27.0-31.0); MEAN CORPUSCULAR HGB CONC 33.2 g/dl (33.0-37.0); MEAN PLATELET VOLUME 10.4 fl (9.6-12.3); PLATELET COUNT AUTOMATED 175 10*3/uL (130-400); RED CELL DISTRI WIDTH 15.5 % (0-14.5)
[2018-07-24 11:42] LABS: BASOPHILS 6 % (0-1); OVALOCYTES MODERATE; PLATELET SUFFICIENCY NORMAL (NORMAL); TOTAL CELLS COUNTED 100 #CELLS
[2018-07-24 11:45] LABS: WHITE BLOOD COUNT 1.6 10*3/uL (4.8-10.8)
== END | disposition home or self-care (01) ==
LOC: LAB 10:46
PROVIDERS: Internal Medicine Hematology & Oncology
DX: Z51.11 Encounter for antineoplastic chemotherapy (principal); Z45.2 Encounter for adjustment and management of vascular access device; T86.99 Other complications of unspecified transplanted organ and tissue; C83.31 Diffuse large B-cell lymphoma, lymph nodes of head, face, and neck; D47.Z1 Post-transplant lymphoproliferative disorder (PTLD); R11.2 Nausea with vomiting, unspecified

== ENCOUNTER → 2018-12-12 | Outpatient (CLI) | payer MEDICARE ==
[~2018-12-12] MED LIST changes: +ANTIBIOTIC28.4 GM T; +AUGMENTIN 875-875 MG PO; +DOXYCYCLINE100 M3 PO; +Tobrex Ophth S2.5 ML OPH
[2018-12-12 13:24] LABS: BUN 20 mg/dl (7-24); CHLORIDE 107 mmol/L (98-107); CREATININE 1.35 mg/dL (0.70-1.30); PHOSPHOROUS 2.5 mg/dL (2.5-4.9); POTASSIUM 4.6 mmol/L (3.5-5.1); SODIUM 141 mmol/L (136-145); URIC ACID 5.9 mg/dL (3.5-7.2)
[2018-12-12 13:31] LABS: BASO # 0.1 10*3/uL (0.0-0.1); BASO % 1.2 % (0.0-1.0); EOS # 0.2 10*3/uL (0.0-0.4); EOS % 5.1 % (1.0-4.0); HEMATOCRIT 43.4 % (42.0-52.0); HEMOGLOBIN 14.7 g/dl (14.0-18.0); LYMPH # 0.7 10*3/uL (1.3-4.4); LYMPH % 15.8 % (27.0-41.0); MEAN CELL VOLUME 90.4 fl (80.0-94.0); MEAN CORPUSCULAR HGB 30.6 pg (27.0-31.0); MEAN CORPUSCULAR HGB CONC 33.9 g/dl (33.0-37.0); MONO # 0.3 10*3/uL (0.1-1.0); MONO % 6.3 % (3.0-9.0); NEUT # 2.9 10*3/uL (2.3-7.9); NEUT % 71.4 % (47.0-73.0); PLATELET COUNT AUTOMATED 149 10*3/uL (130-400); RED CELL DISTRI WIDTH 14.1 % (0-14.5); WHITE BLOOD COUNT 4.1 10*3/uL (4.8-10.8)
== END | disposition home or self-care (01) ==
LOC: LAB 12:31
PROVIDERS: Internal Medicine Nephrology
DX: E55.9 Vitamin D deficiency, unspecified (principal); D89.9 Disorder involving the immune mechanism, unspecified; E34.0 Carcinoid syndrome; Z79.899 Other long term (current) drug therapy; Z94.0 Kidney transplant status

== ENCOUNTER → 2019-04-10 | Outpatient (CLI) | payer MEDICAID ==
[2019-04-10 17:18] LABS: BUN 13 mg/dl (7-24); CHLORIDE 109 mmol/L (98-107); SODIUM 143 mmol/L (136-145)
== END | disposition home or self-care (01) ==
LOC: LAB 15:33
PROVIDERS: Internal Medicine
DX: R21 Rash and other nonspecific skin eruption (principal); R60.0 Localized edema

== ENCOUNTER → 2019-05-02 | Outpatient (CLI) | payer MEDICARE, MEDICAID | END | disposition home or self-care (01) | LOC: CARD 08:30 | DX: I51.7 Cardiomegaly (principal); R60.0 Localized edema ==

== ENCOUNTER → 2019-07-19 | Outpatient (CLI) | payer MEDICARE ==
[2019-07-19 12:44] LABS: BILIRUBIN NEGATIVE (NEGATIVE); BLOOD NEGATIVE (NEGATIVE); CLARITY CLEAR (CLEAR); COLOR YELLOW (YELLOW); GLUCOSE NEGATIVE (NEGATIVE); KETONE NEGATIVE (NEGATIVE); LEUKO ESTERASE NEGATIVE (NEGATIVE); NITRITE NEGATIVE (NEGATIVE); PH 6.5 (5.0-9.0)
[2019-07-19 12:47] LABS: BASO # 0.1 10*3/uL (0.0-0.1); EOS # 0.5 10*3/uL (0.0-0.4); EOS % 9.1 % (1.0-4.0); HEMATOCRIT 43.1 % (42.0-52.0); HEMOGLOBIN 14.3 g/dl (14.0-18.0); LYMPH # 0.8 10*3/uL (1.3-4.4); LYMPH % 14.8 % (27.0-41.0); MEAN CELL VOLUME 90.4 fl (80.0-94.0); MEAN CORPUSCULAR HGB CONC 33.2 g/dl (33.0-37.0); MEAN PLATELET VOLUME 11.1 fl (9.6-12.3); MONO # 0.4 10*3/uL (0.1-1.0); MONO % 7.9 % (3.0-9.0); NEUT # 3.4 10*3/uL (2.3-7.9); NEUT % 66.8 % (47.0-73.0); PLATELET COUNT AUTOMATED 137 10*3/uL (130-400); RED BLOOD COUNT 4.77 10*6/uL (4.50-5.90); RED CELL DISTRI WIDTH 13.8 % (0-14.5); WHITE BLOOD COUNT 5.1 10*3/uL (4.8-10.8)
[2019-07-19 12:58] LABS: EPITHELIAL CELLS 0-2; RBC 0-2 rbc/hpf (0-2)
[2019-07-19 13:18] LABS: ALBUMIN 3.6 gm/dl (3.1-4.5); ALKALINE PHOSPHATASE 83 U/L (45-117); BUN 15 mg/dl (7-24); CHLORIDE 108 mmol/L (98-107); CPK 98 U/L (39-308); CREATININE 1.42 mg/dL (0.70-1.30); POTASSIUM 3.9 mmol/L (3.5-5.1); SGOT/AST 14 IU/L (3-35); SGPT/ALT 34 U/L (12-78); SODIUM 141 mmol/L (136-145); TOTAL PROTEIN 6.7 gm/dL (6.4-8.2); URIC ACID 6.4 mg/dL (3.5-7.2)
[2019-07-20 12:06] LABS: CREATININE,URINE 104.7 mg/dL (Not Estab.); MICRO ALBUMIN/CRE RATIO 663.2 (0.0-30.0)
== END | disposition home or self-care (01) ==
LOC: LAB 11:49
PROVIDERS: Internal Medicine Nephrology
DX: E11.9 Type 2 diabetes mellitus without complications (principal); Z94.0 Kidney transplant status

== ENCOUNTER 2019-09-02 16:31 | Emergency (ER) | payer MEDICARE ==
[~2019-09-02] VITALS: Ht 182.8 cm; Wt 140.6 kg
[2019-09-02 17:00] LABS: BASO # 0.1 10*3/uL (0.0-0.1); BASO % 1.3 % (0.0-1.0); EOS # 0.4 10*3/uL (0.0-0.4); EOS % 5.8 % (1.0-4.0); HEMATOCRIT 43.3 % (42.0-52.0); HEMOGLOBIN 14.9 g/dl (14.0-18.0); LYMPH % 15.9 % (27.0-41.0); MEAN CELL VOLUME 85.4 fl (80.0-94.0); MEAN CORPUSCULAR HGB 29.4 pg (27.0-31.0); MEAN CORPUSCULAR HGB CONC 34.4 g/dl (33.0-37.0); MEAN PLATELET VOLUME 10.8 fl (9.6-12.3); MONO # 0.3 10*3/uL (0.1-1.0); MONO % 5.4 % (3.0-9.0); NEUT # 4.5 10*3/uL (2.3-7.9); NEUT % 71.3 % (47.0-73.0); PLATELET COUNT AUTOMATED 148 10*3/uL (130-400); RED BLOOD COUNT 5.07 10*6/uL (4.50-5.90); RED CELL DISTRI WIDTH 13.4 % (0-14.5); WHITE BLOOD COUNT 6.4 10*3/uL (4.8-10.8)
[2019-09-02 17:11] LABS: ACT PARTIAL THROMBO TIME 26.8 SECONDS (20.0-32.1); INTERNATIONAL NORM RATIO 0.9 (2.0-3.5)
[2019-09-02 17:20] LABS: ALBUMIN 3.9 gm/dl (3.1-4.5); ALKALINE PHOSPHATASE 71 U/L (45-117); BUN 24 mg/dl (7-24); CHLORIDE 109 mmol/L (98-107); CREATININE 1.48 mg/dL (0.70-1.30); POTASSIUM 3.9 mmol/L (3.5-5.1); SGOT/AST 29 IU/L (3-35); SGPT/ALT 41 U/L (12-78); SODIUM 141 mmol/L (136-145); TOTAL PROTEIN 7.1 gm/dL (6.4-8.2)
[2019-09-02 17:32] LABS: BILIRUBIN NEGATIVE (NEGATIVE); BLOOD TRACE-INTACT (NEGATIVE); CLARITY CLEAR (CLEAR); COLOR YELLOW (YELLOW); GLUCOSE NEGATIVE (NEGATIVE); KETONE 1+ (NEGATIVE); LEUKO ESTERASE NEGATIVE (NEGATIVE); NITRITE NEGATIVE (NEGATIVE); UROBILINOGEN 0.2 E.U./dl (0.2-1.0)
[2019-09-02 17:49] LABS: BACTERIA TRACE; EPITHELIAL CELLS 0-2; RBC 0-2 rbc/hpf (0-2); WBC 0-2 wbc/hpf (0-5)
== END 2019-09-02 17:36 | disposition home or self-care (01) ==
LOC: ED 16:31
PROVIDERS: Emergency Medicine
DX: R60.0 Localized edema (principal); H53.8 Other visual disturbances; R42 Dizziness and giddiness; R19.7 Diarrhea, unspecified; R79.1 Abnormal coagulation profile; I10 Essential (primary) hypertension; K21.9 Gastro-esophageal reflux disease without esophagitis; G43.909 Migraine, unspecified, not intractable, without status migrainosus; Z88.1 Allergy status to other antibiotic agents; Z91.041 Radiographic dye allergy status; Z79.899 Other long term (current) drug therapy; Z79.2 Long term (current) use of antibiotics; Z94.0 Kidney transplant status

== ENCOUNTER → 2019-09-07 | Outpatient (CLI) | payer MEDICARE | END | disposition home or self-care (01) | LOC: CT 09:45 | DX: Z51.11 Encounter for antineoplastic chemotherapy (principal); Z45.2 Encounter for adjustment and management of vascular access device; I10 Essential (primary) hypertension; K21.9 Gastro-esophageal reflux disease without esophagitis; G47.30 Sleep apnea, unspecified; E86.0 Dehydration; C83.31 Diffuse large B-cell lymphoma, lymph nodes of head, face, and neck; J01.90 Acute sinusitis, unspecified; D47.Z1 Post-transplant lymphoproliferative disorder (PTLD); C49.9 Malignant neoplasm of connective and soft tissue, unspecified; R11.2 Nausea with vomiting, unspecified; R16.1 Splenomegaly, not elsewhere classified; Z94.0 Kidney transplant status ==

== ENCOUNTER 2019-11-28 11:53 | Inpatient (IN) | payer MEDICARE ==
[~2019-11-28] VITALS: Ht 182.8 cm; Wt 152.5 kg
[2019-11-28 12:05] VITALS: BP 125/63
[2019-11-28 13:06] LABS: BASO # 0.1 10*3/uL (0.0-0.1); EOS # 0.4 10*3/uL (0.0-0.4); EOS % 7.7 % (1.0-4.0); HEMATOCRIT 40.2 % (42.0-52.0); HEMOGLOBIN 13.6 g/dl (14.0-18.0); LYMPH % 19.3 % (27.0-41.0); MEAN CELL VOLUME 88.2 fl (80.0-94.0); MEAN CORPUSCULAR HGB 29.8 pg (27.0-31.0); MEAN CORPUSCULAR HGB CONC 33.8 g/dl (33.0-37.0); MONO # 0.3 10*3/uL (0.1-1.0); MONO % 6.4 % (3.0-9.0); NEUT # 3.4 10*3/uL (2.3-7.9); NEUT % 64.6 % (47.0-73.0); PLATELET COUNT AUTOMATED 146 10*3/uL (130-400); RED BLOOD COUNT 4.56 10*6/uL (4.50-5.90); RED CELL DISTRI WIDTH 14.1 % (0-14.5); WHITE BLOOD COUNT 5.2 10*3/uL (4.8-10.8)
[2019-11-28 13:13] LABS: ALBUMIN 3.5 gm/dl (3.1-4.5); ALKALINE PHOSPHATASE 68 U/L (45-117); BUN 17 mg/dl (7-24); CHLORIDE 111 mmol/L (98-107); CREATININE 1.59 mg/dL (0.70-1.30); LIPASE 84 U/L (73-393); POTASSIUM 3.9 mmol/L (3.5-5.1); SGOT/AST 23 IU/L (3-35); SGPT/ALT 67 U/L (12-78); SODIUM 142 mmol/L (136-145); TOTAL PROTEIN 6.5 gm/dL (6.4-8.2)
[2019-11-28 13:14] LABS: ACT PARTIAL THROMBO TIME 25.6 SECONDS (20.0-32.1); INTERNATIONAL NORM RATIO 0.9 (2.0-3.5); TROPONIN I < 0.015 ng/ml (<0.045)
[2019-11-28 13:31] LABS: BILIRUBIN NEGATIVE (NEGATIVE); BLOOD NEGATIVE (NEGATIVE); CLARITY CLEAR (CLEAR); COLOR YELLOW (YELLOW); GLUCOSE NEGATIVE (NEGATIVE); KETONE NEGATIVE (NEGATIVE); LEUKO ESTERASE NEGATIVE (NEGATIVE); NITRITE NEGATIVE (NEGATIVE); UROBILINOGEN 0.2 E.U./dl (0.2-1.0)
[2019-11-28 13:38] LABS: RBC 0-2 rbc/hpf (0-2); WBC 0-2 wbc/hpf (0-5)
[2019-11-28 16:18] VITALS: BP 145/82
[2019-11-28 16:50] VITALS: BP 134/69
[2019-11-28] MEDS ORDERED: CLARITIN10 MG PO (16:54)
[2019-11-28 17:00] VITALS: BP 134/69
--- NOTE | 2019-11-28 17:00 | NUR ---
A 39, admitted to 4E, under the services of MAGED Alejandro MD with a diagnosis of ACUTE HEART FAILURE. Chief complaint is INCREASED SOB AND 20 LB WEIGHT GAIN. Patient arrived via bed from ER. Monitor applied. Initial assessment completed. Vital signs taken and recorded. MAGED ALEJANDRO MD notified of admission to the unit. Orders received. See assessment for past medical history, medications and allergies. Patient and/or family oriented to unit. [facility] visitation policy reviewed. Clothing/patient valuable form completed. KRZYSZTOF SANTILLAN
--- NOTE | 2019-11-28 17:05 | NUR ---
MEDS RECONCILED AT BEDSIDE WITH PT.
--- NOTE | 2019-11-28 17:29 | NUR ---
DR ANNE AWARE,ROUNDED AND SEEN PT. ORDERS RECIEVED.
--- NOTE | 2019-11-28 18:14 | NUR ---
NOTIFIED DR ROBERTS OF NEW CONSULT FOR ACUTE HEART FAILURE.
--- NOTE | 2019-11-28 19:50 | NUR ---
DR. RODRIGUEZ MADE AWARE OF CONSULT STATED DR. ROBERTS WILL BE HERE IN AM TO SEE PATIENT.
[2019-11-28 20:00] VITALS: BP 125/70
--- NOTE | 2019-11-28 21:52 | NUR ---
PATIENT ASSESSMENT COMPLETED WITHOUT INCIDENT AT THIS TIME. PATIENT DENIES ANY CHEST PAIN/PRESSURE OR SHORTNESS OF BREATH AT THIS TIME. MEDICATIONS GIVEN WITHOUT INCIDENT AT THIS TIME. PATIENT CURRENTLY USING HOME CPAP UNIT AT 11CM H2O PRESSURE. CALL LIGHT WITHIN REACH, WILL CONTINUE TO MONITOR.
[2019-11-29] VITALS: BP 118/61
--- NOTE | 2019-11-29 02:51 | NUR ---
24 HOUR CHART CHECK COMPLETED
[2019-11-29 06:33] LABS: BASO # 0.1 10*3/uL (0.0-0.1); BASO % 1.3 % (0.0-1.0); EOS # 0.4 10*3/uL (0.0-0.4); EOS % 7.4 % (1.0-4.0); HEMATOCRIT 41.5 % (42.0-52.0); HEMOGLOBIN 13.8 g/dl (14.0-18.0); LYMPH % 21.3 % (27.0-41.0); MEAN CELL VOLUME 89.2 fl (80.0-94.0); MEAN CORPUSCULAR HGB 29.7 pg (27.0-31.0); MEAN CORPUSCULAR HGB CONC 33.3 g/dl (33.0-37.0); MEAN PLATELET VOLUME 11.7 fl (9.6-12.3); MONO # 0.3 10*3/uL (0.1-1.0); MONO % 6.6 % (3.0-9.0); NEUT % 62.8 % (47.0-73.0); PLATELET COUNT AUTOMATED 147 10*3/uL (130-400); RED BLOOD COUNT 4.65 10*6/uL (4.50-5.90); RED CELL DISTRI WIDTH 14.1 % (0-14.5); WHITE BLOOD COUNT 4.7 10*3/uL (4.8-10.8)
[2019-11-29 06:47] LABS: ALBUMIN 3.5 gm/dl (3.1-4.5); CREATININE 1.59 mg/dL (0.70-1.30); FREE T4 0.99 ng/dl (0.76-1.46); TOTAL PROTEIN 6.7 gm/dL (6.4-8.2)
[2019-11-29 06:52] LABS: THYROID STIM HORMONE (HS) 0.9 uIU/ml (0.358-4.75)
[2019-11-29 07:11] LABS: ACT PARTIAL THROMBO TIME 25.9 SECONDS (20.0-32.1); INTERNATIONAL NORM RATIO 0.9 (2.0-3.5)
[2019-11-29 08:05] VITALS: BP 132/74
[2019-11-29 08:11] LABS: VITAMIN D, 25-HYDROXY 23.3 ng/mL (30-100)
--- NOTE | 2019-11-29 09:00 | NUR ---
Cosmetic Surgeon in to talk to patient. Patient states lives at home with his family. There are 12 steps in the home. Physician: Dr. Sincere Mckeon Pharmacy: [facility] Home health services: none Patient's level of ADLs: INDEPENDENT Patient has working utilities: yes DME: c-pap Follow-up physician's appointment after d/c: he prefers to make his own follow up appt after discharge Does patient want to access PORTAL?: no Discharge plan discussed with patient. He is sitting up in his bedside chair without distress noted. He lives at home with his family. He is independent in his ADLs and ambulation. Discussed home health care services and he denies any home needs at this time. When medically stable he will be discharged to home. He states his mother will provide transportation on discharge. JANIA STUBBS
[2019-11-29 12:00] VITALS: BP 121/98
[2019-11-29 16:00] VITALS: BP 128/92
--- NOTE | 2019-11-29 19:25 | NUR ---
24 HOUR CHART CHECK COMPLETE
[2019-11-29 20:00] VITALS: BP 121/55
[2019-11-30] VITALS: BP 101/50
[2019-11-30 06:53] LABS: BASO # 0.1 10*3/uL (0.0-0.1); BASO % 1.3 % (0.0-1.0); EOS # 0.4 10*3/uL (0.0-0.4); EOS % 6.8 % (1.0-4.0); HEMATOCRIT 44.3 % (42.0-52.0); HEMOGLOBIN 15.1 g/dl (14.0-18.0); LYMPH % 19.6 % (27.0-41.0); MEAN CELL VOLUME 88.6 fl (80.0-94.0); MEAN CORPUSCULAR HGB 30.2 pg (27.0-31.0); MEAN CORPUSCULAR HGB CONC 34.1 g/dl (33.0-37.0); MEAN PLATELET VOLUME 11.2 fl (9.6-12.3); MONO # 0.4 10*3/uL (0.1-1.0); MONO % 7.3 % (3.0-9.0); NEUT # 3.4 10*3/uL (2.3-7.9); NEUT % 64.4 % (47.0-73.0); PLATELET COUNT AUTOMATED 159 10*3/uL (130-400); RED CELL DISTRI WIDTH 13.8 % (0-14.5); WHITE BLOOD COUNT 5.3 10*3/uL (4.8-10.8)
[2019-11-30 07:07] LABS: CREATININE 1.67 mg/dL (0.70-1.30); POTASSIUM 4.1 mmol/L (3.5-5.1)
[2019-11-30 08:00] VITALS: BP 122/71
--- NOTE | 2019-11-30 08:30 | NUR ---
Ice Guard Inspector in to see patient. No new needs or request at this time. He denies any home needs. When medically stable he will be discharged to home.
[2019-11-30 11:09] LABS: CREATININE,URINE 76.8 mg/dL (Not Estab.)
[2019-11-30 12:00] VITALS: BP 129/68
[2019-11-30 16:00] VITALS: BP 111/63
[2019-11-30 20:00] VITALS: BP 125/71
[2019-12-01] VITALS: BP 115/61
[2019-12-01 06:13] LABS: BASO # 0.1 10*3/uL (0.0-0.1); BASO % 1.4 % (0.0-1.0); EOS # 0.4 10*3/uL (0.0-0.4); HEMATOCRIT 45.8 % (42.0-52.0); HEMOGLOBIN 15.5 g/dl (14.0-18.0); LYMPH # 1.2 10*3/uL (1.3-4.4); LYMPH % 20.3 % (27.0-41.0); MEAN CELL VOLUME 86.9 fl (80.0-94.0); MEAN CORPUSCULAR HGB 29.4 pg (27.0-31.0); MEAN CORPUSCULAR HGB CONC 33.8 g/dl (33.0-37.0); MEAN PLATELET VOLUME 11.2 fl (9.6-12.3); MONO # 0.4 10*3/uL (0.1-1.0); MONO % 6.5 % (3.0-9.0); NEUT # 3.8 10*3/uL (2.3-7.9); NEUT % 65.3 % (47.0-73.0); PLATELET COUNT AUTOMATED 189 10*3/uL (130-400); RED BLOOD COUNT 5.27 10*6/uL (4.50-5.90); RED CELL DISTRI WIDTH 13.7 % (0-14.5); WHITE BLOOD COUNT 5.8 10*3/uL (4.8-10.8)
[2019-12-01 06:31] LABS: CREATININE 1.92 mg/dL (0.70-1.30); POTASSIUM 4.1 mmol/L (3.5-5.1)
[2019-12-01 08:00] VITALS: BP 134/69
[2019-12-01] MEDS ORDERED: MINOXIDIL2.5 MG PO (10:59)
[2019-12-01] MEDS ORDERED: LASIX40 MG PO (11:00)
--- NOTE | 2019-12-01 11:13 | NUR ---
IN TO PT ROOM AT THIS TIME TO GO OVER DISCHARGE INSTRUCRTIONS. PT IS AWARE OF THE TWO MEDICATIONS THAT ARE SENT TO PHARMACY. IV IS REMOVED. PT HAS NO QUESTIONS AT THIS TIME. PT IS WAITING FOR A RIDE TO PICK HIM UP
--- NOTE | 2019-12-01 11:15 | NUR ---
PT LEAVING THE FLOOR NOW WITH ALL OF HIS BELONGINGS
--- NOTE | 2019-12-01 11:41 | NUR ---
CALLED PT PER DR ALVARES REQUEST AND RELAYED THE MESSAGE THAT HE IS TO STOP TAKING HIS LASIX 40MG AT HOME, PT VERBALIZES THAT HE UNDERSTANDS
== END 2019-12-01 11:15 | disposition home or self-care (01) | DRG 291 ==
LOC: ED 11:53 → 4E 15:38 → EDHOLD 15:38 → 5E 15:54 → 4E 16:18
PROVIDERS: Emergency Medicine; Hospitalist; Internal Medicine Nephrology; ADMIT Internal Medicine
DX: I13.0 Hypertensive heart and chronic kidney disease with heart failure and stage 1 through stage 4 chronic kidney disease, or unspecified chronic kidney disease (principal); I50.33 Acute on chronic diastolic (congestive) heart failure; D47.Z1 Post-transplant lymphoproliferative disorder (PTLD); Z68.42 Body mass index [BMI] 45.0-49.9, adult; Z94.0 Kidney transplant status; R73.9 Hyperglycemia, unspecified; N18.3 Chronic kidney disease, stage 3 (moderate); N06 Isolated proteinuria with specified morphological lesion; D63.1 Anemia in chronic kidney disease; E87.8 Other disorders of electrolyte and fluid balance, not elsewhere classified; K21.9 Gastro-esophageal reflux disease without esophagitis; D89.9 Disorder involving the immune mechanism, unspecified; G47.33 Obstructive sleep apnea (adult) (pediatric); E83.42 Hypomagnesemia; E83.39 Other disorders of phosphorus metabolism; E66.01 Morbid (severe) obesity due to excess calories; E83.9 Disorder of mineral metabolism, unspecified; Z82.49 Family history of ischemic heart disease and other diseases of the circulatory system; Z88.1 Allergy status to other antibiotic agents; Z88.8 Allergy status to other drugs, medicaments and biological substances; Z79.899 Other long term (current) drug therapy

== ENCOUNTER → 2019-12-06 | Outpatient (CLI) | payer MEDICARE ==
[~2019-12-06] MED LIST changes: +CLARITIN10 MG PO; +LASIX40 MG PO; +MINOXIDIL2.5 MG PO
== END | disposition home or self-care (01) ==
LOC: LAB 11:29
DX: I10 Essential (primary) hypertension (principal)

== ENCOUNTER → 2021-03-02 | Outpatient (CLI) | payer MEDICARE ==
[2021-03-02 12:10] LABS: BASO # 0.1 10*3/uL (0.0-0.1); BASO % 1.3 % (0.0-1.0); EOS # 0.5 10*3/uL (0.0-0.4); EOS % 6.6 % (1.0-4.0); HEMATOCRIT 46.6 % (42.0-52.0); LYMPH # 1.1 10*3/uL (1.3-4.4); LYMPH % 15.3 % (27.0-41.0); MEAN CELL VOLUME 88.1 fl (80.0-94.0); MEAN CORPUSCULAR HGB 29.1 pg (27.0-31.0); MONO # 0.4 10*3/uL (0.1-1.0); MONO % 5.4 % (3.0-9.0); NEUT # 4.8 10*3/uL (2.3-7.9); NEUT % 70.4 % (47.0-73.0); PLATELET COUNT AUTOMATED 168 10*3/uL (130-400); RED BLOOD COUNT 5.29 10*6/uL (4.50-5.90); RED CELL DISTRI WIDTH 13.8 % (0-14.5); WHITE BLOOD COUNT 6.9 10*3/uL (4.8-10.8)
[2021-03-02 12:13] LABS: BILIRUBIN Negative (Negative); BLOOD Negative (Negative); CLARITY Clear (Clear); COLOR Yellow (Yellow); GLUCOSE 3+ (Negative); KETONE Negative (Negative); LEUKO ESTERASE Negative (Negative); NITRITE Negative (Negative); UROBILINOGEN 0.2 E.U./dl (0.0-1.0)
[2021-03-02 12:29] LABS: BACTERIA TRACE; WBC 0-2 wbc/hpf (0-5)
[2021-03-02 13:08] LABS: POTASSIUM 5.1 mmol/L (3.5-5.1)
[2021-03-02 13:16] LABS: ALBUMIN 4.1 gm/dl (3.1-4.5); CREATININE 1.94 mg/dL (0.70-1.30); TOTAL PROTEIN 7.8 gm/dL (6.4-8.2)
[2021-03-03 11:07] LABS: CREATININE,URINE 128.3 mg/dL (Not Estab.)
== END | disposition home or self-care (01) ==
LOC: LAB 11:47
PROVIDERS: ATTEND Internal Medicine Nephrology
DX: N18.31 Chronic kidney disease, stage 3a (principal); E83.42 Hypomagnesemia; R25.2 Cramp and spasm; Z94.0 Kidney transplant status

== ENCOUNTER 2021-05-20 05:30 | Emergency (ER) | payer MEDICARE ==
[~2021-05-20] VITALS: Ht 185.4 cm; Wt 158.8 kg
[2021-05-20] MEDS ORDERED: CEPHALEXIN500 M1 PO (07:31)
== END 2021-05-20 07:35 | disposition home or self-care (01) ==
LOC: ED 05:30
DX: L03.115 Cellulitis of right lower limb (principal); Z94.0 Kidney transplant status; Z90.89 Acquired absence of other organs; Z79.899 Other long term (current) drug therapy; Z88.1 Allergy status to other antibiotic agents; Z91.041 Radiographic dye allergy status

== ENCOUNTER 2021-07-23 14:32 | Emergency (ER) | payer MEDICARE ==
[~2021-07-23] VITALS: Ht 182.8 cm; Wt 149.7 kg
[~2021-07-23 14:32] MED LIST changes: +CEPHALEXIN500 M1 PO
== END 2021-07-23 16:02 | disposition left against medical advice (07) ==
LOC: ED 14:32
DX: R73.9 Hyperglycemia, unspecified (principal); Z53.21 Procedure and treatment not carried out due to patient leaving prior to being seen by health care provider

== ENCOUNTER → 2022-04-15 | Day surgery (SDC) | payer MEDICARE ==
[~2022-04-15] VITALS: Ht 185.4 cm; Wt 147.4 kg
[~2022-04-15] MED LIST changes: +JARDIANCE25 MG PO; +NOVOLOG FL100 UNIT/2 SC
[2022-04-15 08:40] VITALS: BP 135/79
[2022-04-15 11:02] VITALS: BP 106/51
[2022-04-15 11:15] VITALS: BP 123/77
[2022-04-15 11:25] VITALS: BP 125/78
[2022-04-15 11:42] VITALS: BP 130/81
[2022-04-15 11:59] VITALS: BP 131/79
== END | disposition home or self-care (01) ==
LOC: SDC 04-12 13:15
PROVIDERS: ATTEND Surgery
DX: C44.209 Unspecified malignant neoplasm of skin of left ear and external auricular canal (principal); C44.692 Other specified malignant neoplasm of skin of right upper limb, including shoulder; I10 Essential (primary) hypertension; K21.9 Gastro-esophageal reflux disease without esophagitis; G43.909 Migraine, unspecified, not intractable, without status migrainosus; M10.9 Gout, unspecified; E11.9 Type 2 diabetes mellitus without complications; J44.9 Chronic obstructive pulmonary disease, unspecified; Z90.89 Acquired absence of other organs; Z98.890 Other specified postprocedural states

== ENCOUNTER 2022-05-03 01:09 | Emergency (ER) | payer MEDICARE ==
[~2022-05-03] VITALS: Ht 185.4 cm; Wt 104.3 kg
[2022-05-03] MEDS ORDERED: CEPHALEXIN500 M1 PO (01:38)
== END 2022-05-03 01:42 | disposition home or self-care (01) ==
LOC: ED 01:09
DX: Z48.02 Encounter for removal of sutures (principal); Z88.1 Allergy status to other antibiotic agents; Z91.041 Radiographic dye allergy status; Z79.899 Other long term (current) drug therapy; Z90.89 Acquired absence of other organs; Z98.890 Other specified postprocedural states

== ENCOUNTER 2022-05-03 15:34 | Emergency (ER) | payer MEDICARE ==
[2022-05-03 16:20] LABS: BASO # 0.1 10*3/uL (0.0-0.1); EOS # 0.4 10*3/uL (0.0-0.4); EOS % 5.3 % (1.0-4.0); LYMPH # 1.8 10*3/uL (1.3-4.4); LYMPH % 23.1 % (27.0-41.0); MEAN CELL VOLUME 87.6 fl (80.0-94.0); MEAN CORPUSCULAR HGB 29.9 pg (27.0-31.0); MEAN CORPUSCULAR HGB CONC 34.1 g/dl (33.0-37.0); MEAN PLATELET VOLUME 11.2 fl (9.6-12.3); MONO # 0.5 10*3/uL (0.1-1.0); MONO % 5.8 % (3.0-9.0); NEUT % 64.2 % (47.0-73.0); PLATELET COUNT AUTOMATED 160 10*3/uL (130-400); RED BLOOD COUNT 5.02 10*6/uL (4.50-5.90); RED CELL DISTRI WIDTH 13.5 % (0-14.5); WHITE BLOOD COUNT 7.8 10*3/uL (4.8-10.8)
== END 2022-05-03 16:40 | disposition home or self-care (01) ==
LOC: ED 15:34
PROVIDERS: Emergency Medicine
DX: T81.30XA Disruption of wound, unspecified, initial encounter (principal); K21.9 Gastro-esophageal reflux disease without esophagitis; G43.909 Migraine, unspecified, not intractable, without status migrainosus; I12.9 Hypertensive chronic kidney disease with stage 1 through stage 4 chronic kidney disease, or unspecified chronic kidney disease; N18.30 Chronic kidney disease, stage 3 unspecified; Z90.89 Acquired absence of other organs; Z98.890 Other specified postprocedural states; Z79.899 Other long term (current) drug therapy; Z91.041 Radiographic dye allergy status; Z88.1 Allergy status to other antibiotic agents; Y92.89 Other specified places as the place of occurrence of the external cause

== ENCOUNTER → 2022-05-04 | Outpatient (CLI) | payer MEDICARE | END | disposition home or self-care (01) | LOC: WOUNDCARE 05:43 | PROVIDERS: ATTEND Surgery | DX: T81.89XA Other complications of procedures, not elsewhere classified, initial encounter (principal); S21.209A Unspecified open wound of unspecified back wall of thorax without penetration into thoracic cavity, initial encounter; S01.90XA Unspecified open wound of unspecified part of head, initial encounter; C44.529 Squamous cell carcinoma of skin of other part of trunk; C44.41 Basal cell carcinoma of skin of scalp and neck; Z94.0 Kidney transplant status; X58.XXXA Exposure to other specified factors, initial encounter; Y93.89 Activity, other specified; Y92.89 Other specified places as the place of occurrence of the external cause; Y99.8 Other external cause status; Y92.238 Other place in hospital as the place of occurrence of the external cause; Y83.8 Other surgical procedures as the cause of abnormal reaction of the patient, or of later complication, without mention of misadventure at the time of the procedure ==

== ENCOUNTER → 2022-05-18 | Outpatient (CLI) | payer MEDICARE | END | disposition home or self-care (01) | LOC: WOUNDCARE 01:22 | PROVIDERS: ATTEND Surgery | DX: T81.89XD Other complications of procedures, not elsewhere classified, subsequent encounter (principal); S21.209D Unspecified open wound of unspecified back wall of thorax without penetration into thoracic cavity, subsequent encounter; S01.90XD Unspecified open wound of unspecified part of head, subsequent encounter; C44.529 Squamous cell carcinoma of skin of other part of trunk; C44.41 Basal cell carcinoma of skin of scalp and neck; Z94.0 Kidney transplant status; X58.XXXD Exposure to other specified factors, subsequent encounter; Y83.8 Other surgical procedures as the cause of abnormal reaction of the patient, or of later complication, without mention of misadventure at the time of the procedure ==

== ENCOUNTER → 2022-10-11 | Day surgery (SDC) | payer MEDICARE ==
[~2022-10-11] VITALS: Ht 185.4 cm; Wt 145.1 kg
[~2022-10-11] MED LIST changes: +HYDROCODONE-AC1 EAC1 PO
[2022-10-11 10:16] VITALS: BP 110/80
[2022-10-11 12:37] VITALS: BP 107/55
[2022-10-11 12:50] VITALS: BP 112/73
[2022-10-11 13:00] VITALS: BP 124/74
== END | disposition home or self-care (01) ==
LOC: SDC 10-07 09:30
PROVIDERS: ATTEND Surgery
DX: C44.41 Basal cell carcinoma of skin of scalp and neck (principal); C44.529 Squamous cell carcinoma of skin of other part of trunk; I10 Essential (primary) hypertension; K21.9 Gastro-esophageal reflux disease without esophagitis; G43.909 Migraine, unspecified, not intractable, without status migrainosus; M10.9 Gout, unspecified; I13.0 Hypertensive heart and chronic kidney disease with heart failure and stage 1 through stage 4 chronic kidney disease, or unspecified chronic kidney disease; E11.22 Type 2 diabetes mellitus with diabetic chronic kidney disease; I50.9 Heart failure, unspecified; N18.30 Chronic kidney disease, stage 3 unspecified; Z79.899 Other long term (current) drug therapy

== ENCOUNTER → 2023-02-21 | Outpatient (CLI) | payer MEDICARE ==
[~2023-02-21] VITALS: Ht 185.4 cm; Wt 145.6 kg
== END ==
LOC: SDC 02-17 10:15 → LAB 02:30 → SDC 09:20 → EDSTATUS 13:30 → SDC 13:30
PROVIDERS: ATTEND Surgery
DX: L98.8 Other specified disorders of the skin and subcutaneous tissue (principal); D48.9 Neoplasm of uncertain behavior, unspecified; Z53.8 Procedure and treatment not carried out for other reasons

== ENCOUNTER → 2025-06-03 | Outpatient (CLI) | payer MEDICARE, OTHER | END | disposition home or self-care (01) | LOC: NM 01:36 | PROVIDERS: ATTEND Internal Medicine | DX: R14.0 Abdominal distension (gaseous) (principal) ==

== ENCOUNTER 2025-09-03 22:43 | Emergency (ER) | payer MEDICARE, OTHER ==
[~2025-09-03] VITALS: Ht 182.8 cm; Wt 136.1 kg
[2025-09-03 23:07] LABS: BASO # 0.1 10*3/uL (0.0-0.1); BASO % 1.4 % (0.0-1.0); EOS # 0.6 10*3/uL (0.0-0.4); EOS % 5.9 % (1.0-4.0); MEAN CELL VOLUME 86.5 fl (80.0-94.0); MEAN CORPUSCULAR HGB 29.7 pg (27.0-31.0); MEAN PLATELET VOLUME 11.2 fl (9.6-12.3); MONO # 0.5 10*3/uL (0.1-1.0); MONO % 5.1 % (3.0-9.0); NEUT # 7.2 10*3/uL (2.3-7.9); NEUT % 71.3 % (47.0-73.0); NUCLEATED RED BLOOD CELL 0.0 % (0.0-0.0); NUCLEATED RED BLOOD CELL 0.0 10*3/uL (0.0-0.0); PLATELET COUNT AUTOMATED 199 10*3/uL (130-400); RED CELL DISTRI WIDTH 13.3 % (0-14.5)
[2025-09-03 23:27] LABS: BUN 26.0 mg/dl (9-23)
[2025-09-03] MEDS ORDERED: MAGNESIUM OXIDE 400 MG TAB PO ONE (23:55)
== END 2025-09-04 01:08 | disposition home or self-care (01) ==
LOC: ED 22:43
PROVIDERS: Internal Medicine
DX: R07.89 Other chest pain (principal); E83.42 Hypomagnesemia; N17.9 Acute kidney failure, unspecified; K21.9 Gastro-esophageal reflux disease without esophagitis; G43.909 Migraine, unspecified, not intractable, without status migrainosus; I12.9 Hypertensive chronic kidney disease with stage 1 through stage 4 chronic kidney disease, or unspecified chronic kidney disease; N18.9 Chronic kidney disease, unspecified